=== PATIENT | female | born 1955 | race Caucasian/White ===

== ENCOUNTER 2016-12-21 10:35 | Emergency (ER) | payer OTHER ==
[2016-12-21 10:45] VITALS: BP 154/99; PULSE 64; TEMP 98; BMI 23.6
[2016-12-21] MEDS ORDERED: LORATADINE 10 MG TABLET PO ONE (10:56)
--- NOTE | 2016-12-21 10:56 | PDOC ---
History of Present Illness - General Chief Complaint: Headache Stated Complaint: HEAD, COLD, FEVER Time Seen by Provider: 12/21/16 10:47 History Source: Patient Exam Limitations: No Limitations - History of Present Illness Initial Comments: CHIEF COMPLAINT: 61 y/o afebrile female with PMH HLD, A-fib (on eliquis) c/o body aches, fever, productive cough, head pressure, nasal congestion x 4 days. HISTORY OF PRESENT ILLNESS: The patient states her highest fever was 101 yesterday. She admits she is coughing up green mucus. She has been taking tylenol for the fever. She denies earache, neck pain, dizziness, runny nose, n/ v/d, CP, SOB, abd pain, back pain. She states her doctor thinks she has a-fib and that's why she's on eliquis and she may have an ablation in the future. She is a non smoker. Vital signs on arrival are within normal limits. REVIEW OF SYSTEMS: GENERAL/CONSTITUTIONAL: +fever. No weakness. No weight change. HEAD, EYES, EARS, NOSE AND THROAT: +nasal congestion. No change in vision. No ear pain or discharge. No sore throat. CARDIOVASCULAR: No chest pain or shortness of breath. RESPIRATORY: +productive cough. No cough, wheezing, or hemoptysis. GASTROINTESTINAL: No abd pain, nausea, vomiting, diarrhea. GENITOURINARY: No dysuria, frequency, or change in urination. MUSCULOSKELETAL: No joint or muscle swelling or pain. No neck or back pain. SKIN: No rash or easy bruising. NEUROLOGIC: +head pressure. No vertigo, loss of consciousness, or loss of sensation. PHYSICAL EXAM: GENERAL: The patient is awake, alert, and fully oriented, non toxic but ill appearing. She has a congested cough. HEAD: Normal with no signs of trauma. Pain with palpation of frontal and maxillary sinuses. ENT: Pupils equal, round and reactive to light, extraocular movements intact, sclera anicteric, conjunctiva clear. Nose congested. LUNGS: Decreased lung sounds right side. Normal excursion. No respiratory distress or use of accessory muscles. CV: RRR, S1/S2, no MRG. Cap refill < 2 sec. ABDOMEN: Soft, non-distended, non-tender even to deep palpation, no hepatomegaly or splenomegaly, no masses. EXTREMITIES: Normal range of motion, no edema. NEUROLOGICAL: Normal speech, normal gait. CN II-XII grossly intact. PSYCH: Normal mood, normal affect. SKIN: Warm, dry, normal turgor, no rashes or lesions noted. Past History - Past Medical History Allergies/Adverse Reactions: Allergies Allergy/AdvReac Type Severity Reaction Status Date / Time Penicillins Allergy Unknown Verified 12/21/16 10:41 levofloxacin [From Levaquin] AdvReac Mild Verified 12/21/16 10:41 Home Medications: Ambulatory Orders Clonazepam [Klonopin -] 1 mg PO ASDIR 05/13/12 Simvastatin [Zocor -] 40 mg PO HS 05/13/12 Cyclobenzaprine HCl [Flexeril -] 10 mg PO TID PRN 12/10/14 Apixaban [Eliquis -] 5 mg PO BID 11/03/15 Trazodone HCl 200 mg PO HS 11/03/15 Venlafaxine HCl [Effexor -] 220 mg PO HS 11/03/15 Clonazepam [Klonopin] 0.5 mg PO AM 03/04/16 Oxycodone HCl [Oxycodone HCl ER] 30 mg PO BID #0 03/06/16 Doxycycline Hyclate 100 mg PO BID #14 capsule 12/21/16 Cardiac Disorders: (Paroxysmal Atrial fibrilation - now rate controlled sinus rhtytm) HTN: Yes (Controlled w/out meds) Hypercholesterolemia: Yes Psychiatric Problems: Yes (ANXIETY, DEPRESSION) - Surgical History Cardiac Surgery: Yes (Loop recorder) Neurologic Surgery: Yes (Spinal stimulator) - Immunization History Immunization Up to Date: Yes - Psycho/Social/Smoking Cessation Hx Anxiety: No Suicidal Ideation: No Smoking Status: No Smoking History: Never smoked Number of Cigarettes Smoked Daily: 0 Information on smoking cessation initiated: No Hx Alcohol Use: No Drug/Substance Use Hx: No Substance Use Type: None *Physical Exam - Vital Signs Last Vital Signs Temp Pulse Resp BP Pulse Ox 98.0 F 64 18 154/99 99 12/21/16 10:42 12/21/16 10:42 12/21/16 10:42 12/21/16 10:42 12/21/16 10:42 Medical Decision Making - Medical Decision Making A/P: 61 y/o female with sinus infection vs pneumonia. Plan is as follows: 1. CXR 2. PO claritin CXR IMPRESSION: No evidence of active pulmonary disease. Will treat the patient for sinus infection. She is allergic to PCN so will treat with doxy. Instructed her to take as prescribed Suggested she also take OTC allergy medicine and continue taking tylenol for fever Instructed her to f/u with her PCP within 1 week, drink plenty of fluids and return to the ER with any worsening or concerning symptoms. The patient verbalizes understanding of all instructions, has no further questions and is awaiting discharge. *DC/Admit/Observation/Transfer Diagnosis at time of Disposition: Sinus infection Qualifiers: Sinusitis location: unspecified location Chronicity: acute Recurrence: non- recurrent Qualified Code(s): J01.90 - Acute sinusitis, unspecified - Discharge Dispostion Disposition: HOME Condition at time of disposition: Stable - Referrals Referrals: Ashwin Ramos MD [Primary Care Provider] - Call tomorrow - Patient Instructions Printed Discharge Instructions: DI for Sinus Headache, DI for Sinusitis Additional Instructions: Discharge Instructions: -You have a sinus infection. A prescription for antibiotics was sent to your pharmacy; please take as prescribed -Take over the counter claritin, zyrtec or becka, along with your antibiotics for symptom relief -Continue taking Tylenol if needed for fever. -Drink plenty of fluids -Follow up with your doctor within 1 week -REturn to the ER with any worsening or concerning symptoms. - Post Discharge Activity Work/School Note: Back to Work
== END 2016-12-21 11:45 | disposition home or self-care (01) ==
LOC: JERFT 10:35
DX: J01.90 Acute sinusitis, unspecified (principal); I48.91 Unspecified atrial fibrillation; E78.5 Hyperlipidemia, unspecified
CPT/HCPCS: 71020-TC; 99281-25

== ENCOUNTER 2017-12-29 08:23 | Day surgery (SDC) | payer OTHER ==
[2017-12-28 08:43] VITALS: BMI 24.3
[2017-12-29 08:46] LABS: BASO % 0.8 % (0-2.0); EOS % 2.4 % (0-4.5); HEMATOCRIT 37.8 % (32.4-45.2); HEMOGLOBIN 13.1 GM/dL (10.7-15.3); LYMPH % 19.6 % (8-40); MCHC 34.6 g/dl (32.0-36.0); MEAN CELL VOLUME 89.5 fl (80-96); MEAN PLT VOLUME 8.7 fl (7.5-11.1); MONO % 7.6 % (3.8-10.2); NEUT % 69.6 % (42.8-82.8); PLATELET COUNT 213 K/MM3 (134-434); RBC 4.22 M/mm3 (3.60-5.2); RDW 13.9 % (11.6-15.6); WHITE BLOOD COUNT 6.6 K/mm3 (4.0-10.0)
[2017-12-29 09:07] LABS: INR 1.04 (0.83-1.09); PROTHROMBIN TIME (PATIENT) 11.7 SEC (9.7-13.0)
[2017-12-29 11:58] VITALS: TEMP 97.3
[2017-12-29] MEDS ORDERED: ACETAMINOPHEN INJECTION 100 ML IVPB ONE (12:18)
[2017-12-29] MEDS ORDERED: ACETAMINOPHEN 1000 MG/100 ML VIAL (NON FORMULARY) IVPB ONE (12:36)
[2017-12-29 14:10] VITALS: BP 114/65; PULSE 64
== END 2017-12-29 14:11 | disposition home or self-care (01) ==
LOC: JRADIR 08:23
PROVIDERS: ATTEND Neurological Surgery
PROC: B01BYZZ Fluoroscopy of Spinal Cord using Other Contrast (ICD-10-PCS; principal; 2017-12-29)
DX: M54.14 Radiculopathy, thoracic region (principal); M54.16 Radiculopathy, lumbar region; M54.5 Low back pain; M51.86 Other intervertebral disc disorders, lumbar region; Z98.890 Other specified postprocedural states
CPT/HCPCS: 36415; 62305; 72128-TC; 72131-TC; 72255-TC-FY; 72265-TC-FY; 76000-TC-FY; 85025; 85610; J0131

== ENCOUNTER 2018-01-30 06:03 | Emergency (ER) | payer OTHER ==
--- NOTE | 2018-01-30 06:09 | PDOC ---
Attending Attestation - Resident Resident Name: Willy Hernandez - ED Attending Attestation I have performed the following: I have examined & evaluated the patient, The case was reviewed & discussed with the resident, I agree w/resident's findings & plan - HPI HPI: 01/30/18 06:47 Pt comes with right flank pain that radiates to her right side and pelvis She has urgency and dysuria; no Hx of stones. This is unrelated to her spinal pain. - Physicial Exam PE: 01/30/18 06:48 Pt is afebrile. VSS and she has no chest pain or SOB. Right flnak pain with percussion, as well as side pain on right with percussion - Medical Decision Making 01/30/18 06:49 Pt has a +UTI; she is allergic to PCN and levaquin. We will treat with bactrim DS. Labs and spiral CT and EKG pending We ordered an EKG as she has a hx of paroxysmal Afib.
[2018-01-30 06:17] VITALS: BP 134/77; PULSE 72; TEMP 98.4; BMI 25.0
[2018-01-30] MEDS ORDERED: KETOROLAC TROMETHAMINE 30 MG/1 ML VIAL IVPUSH ONE (06:24)
[2018-01-30] MEDS ORDERED: KETOROLAC TROMETHAMINE 30 MG/1 ML VIAL ONE (06:29)
--- NOTE | 2018-01-30 06:30 | PDOC ---
History of Present Illness - General Stated Complaint: URINARY PROBLEM Time Seen by Provider: 01/30/18 06:08 History Source: Patient Exam Limitations: No Limitations - History of Present Illness Initial Comments: 01/30/18 06:27 62 yo female pmh of glaucoma, spinal fusions and a recent spinal cord stimulator placement (01/12) presents to the ED for 2 days of difficulty urinating. Patient also admits to right sided flank pain, pain/burning with urination, no blood. Denies recent F/C/N/V CP, SOB or changes in bowel habits. Patient denies any new neuro deficits, admits to residual deficits of right sided lower ext numbness and weakness. Past History - Past Medical History Allergies/Adverse Reactions: Allergies Allergy/AdvReac Type Severity Reaction Status Date / Time Penicillins Allergy Unknown Verified 01/30/18 06:50 levofloxacin [From Levaquin] AdvReac Mild Verified 01/30/18 06:50 Home Medications: Ambulatory Orders Simvastatin [Zocor -] 40 mg PO HS 05/13/12 clonazePAM [Klonopin -] 1 mg PO TID 05/13/12 Apixaban [Eliquis -] 5 mg PO BID 11/03/15 Trazodone HCl 250 mg PO HS 11/03/15 Venlafaxine HCl [Effexor -] 220 mg PO HS 11/03/15 Bimatoprost [Lumigan] 1 drop OU HS 12/28/17 Brimonidine Tartrate/Timolol [Combigan Eye Drops] 1 drop OU BID 12/28/17 Oxycodone HCl [Oxycodone HCl ER] 30 mg PO TID 12/28/17 Tizanidine HCl 6 mg PO TID 12/28/17 Venlafaxine HCl [Effexor -] 110 mg PO DAILY 12/29/17 Anemia: No Asthma: No Cancer: No Cardiac Disorders: Yes (Paroxysmal Atrial fibrilation - now rate controlled sinus rhtytm) CVA: No COPD: No CHF: No Dementia: No Diabetes: No GI Disorders: No Disorders: No HTN: Yes (Controlled w/out meds) Hypercholesterolemia: Yes Liver Disease: No Psychiatric Problems: Yes (ANXIETY, DEPRESSION) Seizures: No Thyroid Disease: No - Surgical History Cardiac Surgery: Yes (Loop recorder) Neurologic Surgery: Yes (Spinal stimulator-back sx x4) - Immunization History Immunization Up to Date: Yes - Suicide/Smoking/Psychosocial Hx Smoking Status: No Smoking History: Never smoked Number of Cigarettes Smoked Daily: 0 Hx Alcohol Use: No Drug/Substance Use Hx: No Substance Use Type: None Review of Systems - Review of Systems Constitutional: No: Chills, Fever Respiratory: No: Shortness of Breath Cardiac (ROS): No: Chest Pain, Edema ABD/GI: Yes: Other (right flank pain). No: Abdominal Distended, Nausea, Vomiting : Yes: Burning, Dysuria, Flank Pain. No: Hematuria, Incontinence Musculoskeletal: Yes: Back Pain Neurological: Yes: Numbness (residual right LE), Weakness (residual right LE) *Physical Exam - Vital Signs Last Vital Signs Temp Pulse Resp BP Pulse Ox 98.4 F 72 20 134/77 99 01/30/18 06:14 01/30/18 06:14 01/30/18 06:14 01/30/18 06:14 01/30/18 06:14 - Physical Exam General Appearance: Yes: Nourished, Appropriately Dressed HEENT: positive: EOMI Respiratory/Chest: positive: Lungs Clear, Normal Breath Sounds. negative: Respiratory Distress, Crackles, Rales, Rhonchi, Stridor, Wheezing Cardiovascular: positive: Regular Rhythm, Regular Rate, S1, S2. negative: Edema , JVD, Murmur Vascular Pulses: Dorsalis-Pedis (R): 4+, Doralis-Pedis (L): 4+ Gastrointestinal/Abdominal: positive: Normal Bowel Sounds, Flat, Soft, Other ( no tenderness with distraction). negative: Pulsatile Mass, Distended, Guarding , Rebound Musculoskeletal: positive: CVA Tenderness (right sti) Extremity: positive: Normal Inspection Integumentary: positive: Normal Color, Dry, Warm Neurologic: positive: Fully Oriented, Alert, Normal Mood/Affect, Normal Response , Motor Strength 5/5 (lower ext equal bilaterally, neurovascularly intact) ED Treatment Course - LABORATORY CBC & Chemistry Diagram: 01/30/18 06:30 Medical Decision Making - Medical Decision Making 01/30/18 06:48 62 yo female presents with 2 days of right flank pain and burning on urination. Spiral CT ordered. UA shows positive leukocytes and blood. Treating with Bactrim while in ED. Re-assess after CT *DC/Admit/Observation/Transfer Diagnosis at time of Disposition: UTI (urinary tract infection) Qualifiers: Urinary tract infection type: site unspecified Hematuria presence: with hematuria Qualified Code(s): N39.0 - Urinary tract infection, site not specified ; R31.9 - Hematuria, unspecified - Referrals Referrals: Ashwin Ramos MD [Primary Care Provider] - - Patient Instructions - Post Discharge Activity
[2018-01-30 06:41] LABS: URINE APPEARANCE CLEAR; URINE BILIRUBIN NEGATIVE (<2.0 mg/dL); URINE COLOR AMBER; URINE GLUCOSE (UA) NEGATIVE (NEGATIVE); URINE KETONE NEGATIVE (NEGATIVE); URINE NITRITE POSITIVE (NEGATIVE); URINE PROTEIN NEGATIVE (NEGATIVE); URINE UROBILINOGEN NEGATIVE mg/dL (0.2-1.0)
[2018-01-30 06:45] LABS: URINE LEUK ESTERASE 2+ (NEGATIVE)
[2018-01-30] MEDS ORDERED: SULFAMETHOXAZOLE/TRIMETHOPRIM 800MG/160MG D.S. TABLET PO ONE (06:46)
[2018-01-30 06:54] LABS: EPI CELLS RARE /HPF (FEW); URINE BACTERIA FEW /hpf (NONE SEEN); URINE MUCUS RARE
[2018-01-30] MEDS ORDERED: SULFAMETHOXAZOLE/TRIMETHOPRIM 800MG/160MG D.S. TABLET ONE (06:54)
[2018-01-30 07:04] LABS: ALBUMIN 3.8 g/dl (3.4-5.0); ANION GAP 6 MMOL/L (8-16); BILIRUBIN,TOTAL 0.5 mg/dL (0.2-1.0); BLOOD UREA NITROGEN 12 mg/dL (7-18); CALCIUM 9.3 mg/dL (8.5-10.1); CHLORIDE 104 mmol/L (98-107); CO2 32 mmol/L (21-32); GLUCOSE,RANDOM 104 mg/dL (74-106); POTASSIUM 3.9 mmol/L (3.5-5.1); SGOT/AST 28 U/L (15-37); SGPT/ALT 32 U/L (13-61); SODIUM 142 mmol/L (136-145)
[2018-01-30 07:05] LABS: ALK PHOS 79 U/L (45-117)
--- NOTE | 2018-01-30 07:32 | PDOC ---
*Physical Exam - Vital Signs Last Vital Signs Temp Pulse Resp BP Pulse Ox 98.4 F 72 20 134/77 99 01/30/18 06:14 01/30/18 06:14 01/30/18 06:14 01/30/18 06:14 01/30/18 06:14 - Physical Exam Comments: GENERAL: Awake, alert, and fully oriented, in no acute distress HEAD: No signs of trauma, normocephalic, atraumatic EYES: PERRL, EOMI, sclera anicteric, conjunctiva clear ENT: Hearing grossly normal, nares patent, oropharynx clear without exudates. Moist mucosa LUNGS: No distress, speaks full sentences, clear to auscultation bilaterally HEART:Regular rate and rhythm, normal S1 and S2, no murmurs appreciated, peripheral pulses normal and equal bilaterally ABDOMEN: Soft, mild suprapubic TTP, normoactive bowel sounds. No guarding, no rebound EXTREMITIES : Normal inspection, Normal range of motion, no edema. No clubbing or cyanosis NEUROLOGICAL: Cranial nerves II through XII grossly intact. Normal speech, normal gait, no focal sensorimotor deficits 01/30/18 07:58 ED Treatment Course - LABORATORY CBC & Chemistry Diagram: 01/30/18 06:30 - ADDITIONAL ORDERS Additional order review: Laboratory Results 01/30/18 01/30/18 06:30 06:30 Sodium 142 Potassium 3.9 Chloride 104 Carbon Dioxide 32 Anion Gap 6 L BUN 12 Creatinine 1.0 Creat Clearance w eGFR 55.82 Random Glucose 104 Calcium 9.3 Total Bilirubin 0.5 AST 28 ALT 32 Alkaline Phosphatase 79 Total Protein 7.0 Albumin 3.8 Urine Color Christine Urine Appearance Clear Urine pH 5.0 Ur Specific [place] 1.014 Urine Protein Negative Urine Glucose (UA) Negative Urine Ketones Negative Urine Blood 1+ H Urine Nitrite Positive Urine Bilirubin Negative Urine Urobilinogen Negative Ur Leukocyte Esterase 2+ H Urine WBC (Auto) 51 Urine RBC (Auto) 4 Ur Epithelial Cells Rare Urine Bacteria Few Urine Mucus Rare - Medications Given in the ED: ED Medications Discontinued Medications Generic Name Dose Route Start Last Admin Trade Name Freq PRN Reason Stop Dose Admin Ketorolac Tromethamine 30 mg 01/30/18 06:24 01/30/18 06:35 Toradol Injection - IVPUSH 01/30/18 06:25 30 mg ONCE ONE Administration Trimethoprim/Sulfamethoxazole 1 each 01/30/18 06:46 01/30/18 07:00 Bactrim Ds - PO 01/30/18 06:47 1 each ONCE ONE Administration Medical Decision Making - Medical Decision Making The patient is a 62F who presents with dysuria and flank pain ED Course UA concerning for UTI CT spiral pending for evaluation of nephrolithiasis 01/30/18 07:31 CT negative for nephrolithiasis Plan for DC with PO abx and PCP f/u Pt was asked to return to the ED immediately for any new or concerning or if they worsen. Pt was in agreement, endorsed understanding, and questions were answered. Dispo: home w/ PCP f/u 01/30/18 08:00 *DC/Admit/Observation/Transfer Diagnosis at time of Disposition: UTI (urinary tract infection) Qualifiers: Urinary tract infection type: site unspecified Hematuria presence: with hematuria Qualified Code(s): N39.0 - Urinary tract infection, site not specified - Discharge Dispostion Disposition: HOME Condition at time of disposition: Stable Decision to Admit order: No - Prescriptions Prescriptions: Sulfamethoxazole/Trimethoprim [Bactrim Ds -] 1 tab PO BID 7 Days #14 tablet - Referrals Referrals: Ashwin Ramos MD [Primary Care Provider] - - Patient Instructions Printed Discharge Instructions: DI for Urinary Tract Infection (UTI) Additional Instructions: You were seen in the Emergency Department today for a urinary tract infection. You were sent a prescription for Bactrim, an antibiotic for your infection. Please take as directed. Review the handouts provided at discharge. Follow up with your primary care physician within the next 1-3 days. Return to the Emergency Department if you experience fevers, blood in your urine, worsening symptoms, or new concerning symptoms. - Post Discharge Activity
--- NOTE | 2018-01-30 09:55 | EKG ---
Test Reason : Blood Pressure : / mmHG Vent. Rate : 063 BPM Atrial Rate : 063 BPM P-R Int : 130 ms QRS Dur : 090 ms QT Int : 392 ms P-R-T Axes : 043 050 036 degrees QTc Int : 401 ms NORMAL SINUS RHYTHM NORMAL ECG WHEN COMPARED WITH ECG OF 04-MAR-2016 18:08, T WAVE VARIATION Confirmed by LISE CARDOZA MD ([id number]) on 01/30/2018 9:55:17 AM Referred By: Confirmed By:LISE CARDOZA MD
== END 2018-01-30 08:14 | disposition home or self-care (01) ==
LOC: JER 06:03
PROC: 3E0333Z Introduction of Anti-inflammatory into Peripheral Vein, Percutaneous Approach (ICD-10-PCS; principal; 2018-01-30)
DX: N39.0 Urinary tract infection, site not specified (principal); I48.91 Unspecified atrial fibrillation; I10 Essential (primary) hypertension; F41.8 Other specified anxiety disorders; E78.00 Pure hypercholesterolemia, unspecified
CPT/HCPCS: 36415; 74176; 80053; 81003; 81015; 87086; 87186; 93005; 93010; 96374; 99282-25

== ENCOUNTER 2018-04-30 18:59 | Observation (INO) | payer OTHER ==
--- NOTE | 2018-04-30 20:08 | PDOC ---
Attending Attestation - HPI HPI: 04/30/18 20:33 The patient is a 62-year-old female with a past medical history significant for HLD, Glaucoma with cataract surgery, HTN, HLD, anxiety, Spinal fusions, and a recent spinal cord stimulator placement (01/12) presents to the emergency department with L. arm weakness. The patient presents with L. arm weakness with a concurrent headache since 1:00 pm today. The patient reports pain to the occipital region that radiates down the arm, thats tingling in quality. Denies worsening headache, fever, chills, chest pain, SOB Allergies: levofloxacin and penicillins. Surgical history: Loop recorder and spinal stimulator, left knee replacement. PCP: Dr. Gabriele Yanez. Neurologist: Dr. Betancourt. - Medical Decision Making 04/30/18 20:33 Documentation prepared by Rhonda Judge, acting as manager of medical for Suzie Harp MD. 04/30/18 22:[address] Betancourt, Spoke with the service, waiting for a call back. <Rhonda Judge - Last Filed: 04/30/18 22:25> - Resident Resident Name: Manuelito Bee - ED Attending Attestation I have performed the following: I have examined & evaluated the patient, The case was reviewed & discussed with the resident, I agree w/resident's findings & plan, Exceptions are as noted - Physicial Exam PE: 04/30/18 20:01 awake alert facies symmetric . lungs clear bilaterally heart rrr no mrg abd soft nt nd.ext wwp no edema no rash. nuero alrt oriented x 3. CN II - XII intact. strength mild left 4+/ 5 weakness left upper ext ( specifically wrist dorsiflexion), extension/ flexion elbow. sensation mild decr dorsum forearm left side. ) all else 5/5 . left leg strength weakness mild ( old ) due to low back pain which is chronic. sensation lower ext intact . speech clear. VF intact. skin warm and dry. - Medical Decision Making 04/30/18 20:05 62 yo F wit h/o HLD, glaucoma, multiple back surgeries ( nerve stimulator followed by pain management ) questionable paraxymsmal afib, here with headache , neck pain and tingling left upper extremity, left upper extremity weakness. headache left posterior occipital region. arm pain described as tingling. has had similar headaches in the past associated with arm weakness one year. ago. no speech changes. does describe some blurry vision . differential: radicular pain, cervical disc disease with occipital headache and nerve root compromise. cva, atypical migraine, ich. plan ct head labs ct neck. cxr ekg . due to pt risk factors for cva, will likely require admission for observation will consult nuerology. 05/01/18 00:37 confirmed doses of oxycodone and lyrica in [facility] lookup. ref # [id number]. takes oxycodone 30 mg, and lyrica 150 mg. d/w dr greer will admit pt. will consult nuerosurgery for evaluation as well. given decadron. <Suzie Harp - Last Filed: 05/01/18 00:38> Heart Score/ECG Review #1 General ECG Interpretation: Sinus Rhythm, Normal Intervals, No acute ischemic changes Compared to previous ECG there are: Other (sinus bradycardia 56. TWI V1 - V2) <Suzie Harp - Last Filed: 05/01/18 00:38>
[2018-04-30] MEDS ORDERED: DEXAMETHASONE SOD PHOSPHATE 10 MG/1 ML VIAL IVPUSH ONE (20:24)
[2018-04-30] MEDS ORDERED: METOCLOPRAMIDE HCL INJECTION 10 MG/2 ML VIAL IVPUSH ONE (20:24)
[2018-04-30] MEDS ORDERED: SODIUM CHLORIDE 1,000 ML IV SCH (20:30)
--- NOTE | 2018-04-30 20:32 | PDOC ---
History of Present Illness - General Chief Complaint: CVA/TIA Stated Complaint: HEADACHE, LT HAND NUMBNESS History Source: Patient Exam Limitations: No Limitations - History of Present Illness Initial Comments: 62 yo F with a hx of HLD, HTN, glaucoma with cataract surgery to left eye, lumbar spinal fusions, and a recent spinal cord stimulator placed in 12/2017 presents to the emergency department with acute left arm weakness that began at 1pm. Per the patient, she states she was at rest when she had onset of left arm pain with weakness described as tingling and loss of arm strength with associative left occipital headaches that radiates to the left arm. The headache is 8/10, throbbing, without aggravating factors, and denies this feeling like previous migraines (denies "worst headache of her life"). Denies the following: fever, chills, nausea, vomiting, chest pain, SOB, abdominal pain , dysuria, hematuria, and diarrhea. Past History - Past Medical History Allergies/Adverse Reactions: Allergies Allergy/AdvReac Type Severity Reaction Status Date / Time Penicillins Allergy Unknown Verified 04/30/18 19:17 levofloxacin [From Levaquin] AdvReac Mild Verified 04/30/18 19:17 Home Medications: Ambulatory Orders clonazePAM [Klonopin -] 1 mg PO TID 05/13/12 Apixaban [Eliquis -] 5 mg PO BID 11/03/15 Trazodone HCl 250 mg PO HS 11/03/15 Venlafaxine HCl [Effexor -] 220 mg PO HS 11/03/15 Bimatoprost [Lumigan] 1 drop OU HS 12/28/17 Brimonidine Tartrate/Timolol [Combigan Eye Drops] 1 drop OU BID 12/28/17 Oxycodone HCl [Oxycodone HCl ER] 30 mg PO TID 12/28/17 Tizanidine HCl 6 mg PO TID 12/28/17 Pregabalin [Lyrica -] 150 mg PO TID PRN 04/30/18 Anemia: No Asthma: No Cancer: No Cardiac Disorders: Yes (Paroxysmal Atrial fibrilation - now rate controlled sinus rhtytm) CVA: No COPD: No CHF: No Dementia: No Diabetes: No GI Disorders: No Disorders: No HTN: Yes (Controlled w/out meds) Hypercholesterolemia: Yes Liver Disease: No Psychiatric Problems: Yes (ANXIETY, DEPRESSION) Seizures: No Thyroid Disease: No - Surgical History Cardiac Surgery: Yes (Loop recorder) Neurologic Surgery: Yes (Spinal stimulator-back sx x4) - Immunization History Immunization Up to Date: Yes - Suicide/Smoking/Psychosocial Hx Smoking Status: No Smoking History: Never smoked Have you smoked in the past 12 months: No Number of Cigarettes Smoked Daily: 0 Information on smoking cessation initiated: No Hx Alcohol Use: No Drug/Substance Use Hx: No Substance Use Type: None *Physical Exam - Vital Signs Last Vital Signs Temp Pulse Resp BP Pulse Ox 98.1 F 63 18 153/85 100 04/30/18 19:14 04/30/18 19:14 04/30/18 19:14 04/30/18 19:14 04/30/18 19:14 Moderate Sedation - Procedure Monitoring Vital Signs: Procedure Monitoring Vital Signs Temperature 98.1 F 04/30/18 19:14 Pulse Rate 63 04/30/18 19:14 Respiratory Rate 18 04/30/18 19:14 Blood Pressure 153/85 04/30/18 19:14 O2 Sat by Pulse Oximetry (%) 100 04/30/18 19:14 ED Treatment Course - LABORATORY CBC & Chemistry Diagram: 04/30/18 20:54 04/30/18 20:54 - RADIOLOGY Radiology Studies Ordered: Category Date Time Status CERVICAL SPINE CT W/O CONTR [CT] Stat CT Scan 04/30/18 19:[address] WITHOUT CONTRAST [CT] Stat CT Scan 04/30/18 19:25 Ordered CHEST X-RAY PORTABLE* [RAD] Stat Radiology 04/30/18 20:24 Ordered Medical Decision Making - Medical Decision Making Dr. Vega was contacted because the patient states that while her temporary insurance assigned her to Dr. Yanez, she has not seen Dr. Yanez before and plans to have insurance in May that places her back with Dr. Vega. 04/30/18 22:[address] Serrano who stated her symptoms and CT findings do not warrant emergency operation. for cervical spine correction, he states it would require transfer to a tertiary center as he doesnt do these type of operations here. He recommends she can be discharged with close outpatient follow up. We will page her neurologist, Dr. Betancourt for further consultation. 05/01/18 00:[address] Betancourt who states 1x dose of steroids is fine. No need for steroids in the AM. *DC/Admit/Observation/Transfer - Referrals - Patient Instructions - Post Discharge Activity
[2018-04-30] MEDS ORDERED: DEXAMETHASONE SOD PHOSPHATE 10 MG/1 ML VIAL ONE (20:56)
[2018-04-30] MEDS ORDERED: METOCLOPRAMIDE HCL INJECTION 10 MG/2 ML VIAL ONE (20:57)
[2018-04-30 21:03] LABS: BASO % 0.8 % (0-2.0); EOS % 6.4 % (0-4.5); HEMATOCRIT 37.7 % (32.4-45.2); HEMOGLOBIN 13.1 GM/dL (10.7-15.3); LYMPH % 41.5 % (8-40); MCH 31.1 pg (25.7-33.7); MCHC 34.8 g/dl (32.0-36.0); MEAN CELL VOLUME 89.4 fl (80-96); MEAN PLT VOLUME 10.1 fl (7.5-11.1); MONO % 8.5 % (3.8-10.2); NEUT % 42.8 % (42.8-82.8); PLATELET COUNT 177 K/MM3 (134-434); RBC 4.22 M/mm3 (3.60-5.2); RDW 13.7 % (11.6-15.6); WHITE BLOOD COUNT 4.7 K/mm3 (4.0-10.0)
[2018-04-30 21:12] LABS: INR 0.96 (0.83-1.09); PROTHROMBIN TIME (PATIENT) 11.3 SEC (9.7-13.0)
[2018-04-30 21:29] LABS: ALBUMIN 3.8 g/dl (3.4-5.0); ALK PHOS 85 U/L (45-117); ANION GAP 5 MMOL/L (8-16); BILIRUBIN,TOTAL 0.5 mg/dL (0.2-1); BLOOD UREA NITROGEN 12 mg/dL (7-18); CHLORIDE 104 mmol/L (98-107); CO2 31 mmol/L (21-32); CREATININE 1.1 mg/dL (0.55-1.3); GLUCOSE,RANDOM 91 mg/dL (74-106); SGOT/AST 30 U/L (15-37); SGPT/ALT 32 U/L (13-61); SODIUM 140 mmol/L (136-145); TOT PROT 6.5 g/dl (6.4-8.2)
[2018-05-01 00:29] LABS: URINE APPEARANCE CLEAR; URINE BILIRUBIN NEGATIVE (<2.0 mg/dL); URINE COLOR STRAW; URINE GLUCOSE (UA) NEGATIVE (NEGATIVE); URINE KETONE NEGATIVE (NEGATIVE); URINE LEUK ESTERASE NEGATIVE (NEGATIVE); URINE NITRITE NEGATIVE (NEGATIVE); URINE PROTEIN NEGATIVE (NEGATIVE); URINE UROBILINOGEN NEGATIVE mg/dL (0.2-1.0)
[2018-05-01] MEDS ORDERED: PREGABALIN 75 MG CAPSULE PO ONE ×2 (00:29→11:00)
[2018-05-01] MEDS ORDERED: oxyCODONE HCL 5 MG TABLET PO ONE ×2 (00:29→00:30)
[2018-05-01] MEDS ORDERED: DOCUSATE SODIUM 100 MG CAPSULE (FP) PO ONE ×2 (00:29→00:35)
[2018-05-01] MEDS ORDERED: PREGABALIN 50 MG CAPSULE ONE (00:34)
[2018-05-01] MEDS ORDERED: oxyCODONE HCL 5 MG TABLET ONE (00:34)
[2018-05-01 00:36] LABS: EPI CELLS RARE /HPF (FEW); URINE BACTERIA RARE /hpf (NONE SEEN); URINE MUCUS RARE
[2018-05-01] MEDS ORDERED: oxyCODONE HCL 5 MG TABLET PO PRN (02:23)
[2018-05-01] MEDS ORDERED: traZODone HCL 50 MG TABLET (FP) PO ONE ×2 (02:30→09:47)
[2018-05-01 02:43] VITALS: BMI 26.5
[2018-05-01] MEDS ORDERED: VENLAFAXINE HCL 75 MG TABLET PO ONE (09:49)
--- NOTE | 2018-05-01 09:49 | EKG ---
Test Reason : Blood Pressure : / mmHG Vent. Rate : 056 BPM Atrial Rate : 056 BPM P-R Int : 196 ms QRS Dur : 094 ms QT Int : 412 ms P-R-T Axes : 053 040 028 degrees QTc Int : 397 ms SINUS BRADYCARDIA OTHERWISE NORMAL ECG WHEN COMPARED WITH ECG OF 30-JAN-2018 07:02, NO SIGNIFICANT CHANGE WAS FOUND Confirmed by LISE CARDOZA MD ([id number]) on 05/01/2018 9:49:20 AM Referred By: Confirmed By:LISE CARDOZA MD
--- NOTE | 2018-05-01 09:57 | PN ---
Progress Note, Physician Chief Complaint: Pt sitting in bed ambulating well, AAo3,no apparent motor or sensory deficit no new copmplaints today neurology consult pending No progression of neurological symptoms Ct head and cT cervical spine noted - Current Medication List Current Medications: Active Medications Sodium Chloride (Normal Saline -) 1,000 mls @ 42 mls/hr IV ASDIR SERA Last Admin: 04/30/18 21:07 Dose: 42 mls/hr Oxycodone HCl (Roxicodone -) 30 mg PO BID SERA Pregabalin (Lyrica -) 150 mg PO TID ONE Stop: 05/01/18 09:51 Tizanidine HCl (Tizanidine Hcl) 4 mg PO BID SERA Trazodone HCl (Desyrel -) 250 mg PO ONCE ONE Stop: 05/01/18 09:48 Venlafaxine HCl (Effexor -) 225 mg PO ONCE ONE Stop: 05/01/18 09:50 - Objective Vital Signs: Vital Signs Temperature 97.5 F L 05/01/18 06:00 Pulse Rate 64 05/01/18 06:00 Respiratory Rate 18 05/01/18 06:00 Blood Pressure 138/76 05/01/18 06:00 O2 Sat by Pulse Oximetry (%) 99 05/01/18 00:44 Constitutional: Yes: No Distress Eyes: Yes: Conjunctiva Clear HENT: Yes: Atraumatic Neck: Yes: Supple, Trachea Midline Cardiovascular: Yes: Regular Rate and Rhythm Respiratory: Yes: Regular, CTA Bilaterally Gastrointestinal: Yes: WNL, Normal Bowel Sounds, Soft Musculoskeletal: Yes: WNL Extremities: Yes: WNL Edema: No Peripheral Pulses WNL: Yes Neurological: Yes: WNL, Alert, Oriented, Cran Nerves II-XII Intact ...Motor Strength: WNL Psychiatric: Yes: WNL, Alert Labs: CBC, BMP 04/30/18 20:54 04/30/18 20:54 INR, PTT INR 0.96 (0.83-1.09) 04/30/18 20:54 - ....Imaging Chest X-ray: Report Reviewed Cat Scan: Report Reviewed EKG: Report Reviewed Assessment/Plan Discogenic pain neck,tingling sensation LT UE Neuropathic PAIN S/p spinal cord stimulator HTN Glaucoma LOOP recorder PLAN Continue home MEDS Neurology F/u Monitor the PATIENT
[2018-05-01] MEDS ORDERED: TIZANIDINE HCL 4 MG TABLET PO SCH (10:00)
[2018-05-01] MEDS ORDERED: oxyCODONE HCL 5 MG TABLET PO SCH (10:00)
--- NOTE | 2018-05-01 10:09 | CON.NEURO ---
Consult Consult Specialty:: [place] Referred by:: PCP - History of Present Illness History of Present Illness: this is a very pleasant 62-year-old right-handed retired lady who presented to the emergency room last night with a chief complaint of left arm weakness. Patient is under the care of neurosurgeon in [facility] back in December 28, 2017 she had a spinal cord stimulator trial. Patient was on Lyrica 150 twice daily I spoke to the emergency room physician CAT scan of the head was done which revealed no evidence of acute INSURANCE TERRITORY MANAGER pathology CAT scan of the cervical spine was done which showed multiple level disc herniation with spinal stenosis and degenerative disc disease. Patient was admitted to the floor for observation with the left arm weakness received 1 dose of Decadron patient about 80% better patient with mild numbness and tingling in the left arm patient did not see the neurologist for quite a while patient stop taking B complex patient denies any difficulty swallowing patient denies any urinary incontinence. Patient does not see chiropractic - History Source History Provided By: Patient Limitations to Obtaining History: No Limitations - Past Medical History Cardio/Vascular: Yes: HTN, Hyperlipdemia. No: AFIB, Aneurysm, Aortic Insufficiency, Aortic Stenosis, CAD, CHF, Deep Vein Thrombosis, VA, Mitral Insufficiency, Mitral Stenosis, Murmur, Pulmonary Hypertension, Other - Alcohol/Substance Use Hx Alcohol Use: No - Smoking History Smoking history: Never smoked Have you smoked in the past 12 months: No Aproximately how many cigarettes per day: 0 Home Medications - Allergies Allergies/Adverse Reactions: Allergies Allergy/AdvReac Type Severity Reaction Status Date / Time Penicillins Allergy Unknown Verified 04/30/18 19:17 levofloxacin [From Levaquin] AdvReac Mild Verified 04/30/18 19:17 - Home Medications Home Medications: Ambulatory Orders clonazePAM [Klonopin -] 1 mg PO TID 05/13/12 Trazodone HCl 250 mg PO HS 11/03/15 Venlafaxine HCl [Effexor -] 220 mg PO HS 11/03/15 Bimatoprost [Lumigan] 1 drop OU HS 12/28/17 Brimonidine Tartrate/Timolol [Combigan 0.2%-0.5% Eye Drops] 1 drop OU BID Oxycodone HCl [Oxycodone HCl ER] 30 mg PO TID 12/28/17 Tizanidine HCl 6 mg PO TID 12/28/17 Pregabalin [Lyrica -] 150 mg PO TID PRN 04/30/18 Duloxetine HCl [Cymbalta] 30 mg PO DAILY #10 capsule. 05/01/18 Family Disease History - Family Disease History Family Disease History: Heart Disease: Father, Mother Review of Systems - Review of Systems Musculoskeletal: reports: Back Pain, Extremity Pain, Joint Swelling, Muscle Pain Neurological: reports: Incoordination, Numbness, Parasthesia Physical Exam-Neuro Vital Signs: Vital Signs Temperature 97.5 F L 05/01/18 06:00 Pulse Rate 64 05/01/18 06:00 Respiratory Rate 18 05/01/18 06:00 Blood Pressure 138/76 05/01/18 06:00 O2 Sat by Pulse Oximetry (%) 99 05/01/18 00:44 Constitutional: Yes: Well Nourished Neck: Yes: WNL Labs: CBC, BMP 04/30/18 20:54 04/30/18 20:54 INR, PTT INR 0.96 (0.83-1.09) 04/30/18 20:54 - Neuro Exam Level Of Consciousness: Yes: Oriented to Person, Oriented to Place, Oriented to Time Eyes: Yes: PERRLA Speech: WNL Dominant Hand: Right Cranial Nerves II-XII Intact: Yes Gag: Present DTR's: 1+ Right Tricep, 1+ Left Brachioradialis, 2+ Left Bicep, 2+ Right Bicep Response to light touch: Normal Response to pain prick: Normal Response to temperature: Normal Response to vibration: Normal Motor Strength: 3/5: Left Arm, Right Arm, Left Leg, Right Leg Imaging - Results Cat Scan: Image Reviewed Problem List - Problems (1) Cervical radiculopathy Assessment/Plan: chronic neck pain syndrome Status post spinal cord stimulator no evidence of myelopathy C6-C7 radiculopathy left more than right 1. Avoid child caregiver. 2. Obtain the most recent images from the neurosurgeon in [place]. 3. Bedrest. 4. B complex vitamin. 5. Trial of Cymbalta 30 mg once daily with careful monitoring of side effects to the antipsychotic the patient's on. 5. Increase Lyrica to 200 mg twice daily. 6. Patient will need nerve conduction testing electromyography of the upper extremities as outpatient. Code(s): M54.12 - RADICULOPATHY, CERVICAL REGION
[2018-05-01] MEDS ORDERED: TRAZODONE HCL PO ONE (10:15)
[2018-05-01] MEDS ORDERED: VENLAFAXINE HCL 75 MG E.R. CAPSULES (FP) PO SCH (10:45)
[2018-05-01] MEDS ORDERED: PT OWN MED DRAWER 7, Y5N ONE ×2 (11:28→11:49)
[2018-05-01] MEDS ORDERED: PREGABALIN 100 MG CAPSULE PO SCH (14:00)
[2018-05-01] MEDS ORDERED: PREGABALIN 75 MG CAPSULE PO SCH (14:00)
[2018-05-01 14:12] VITALS: BP 109/62; PULSE 73; TEMP 97.9
[2018-05-01] MEDS ORDERED: TRAZODONE HCL PO SCH (22:00)
[2018-05-02] MEDS ORDERED: DULoxetine HCL 30 MG CAPSULE.DR (FP) PO SCH (10:00)
--- NOTE | 2018-05-02 12:14 | DS ---
DATE OF ADMISSION: 04/30/2018 DATE OF DISCHARGE: 05/01/2018 Patient is a 63-year-old female with past medical history of hyperlipidemia, glaucoma, hypertension, hyperlipidemia, anxiety, spinal fusion, recent spinal cord stimulator placement, loop recorder placement, admitted for cervical disk pain with tingling sensation on the left upper extremity and mild headache. During visit to the emergency room, vitals were stable. Patient had labs done, normal. CT head negative. CT cervical spine showed multi-level spinal stenosis with disk herniation. EKG was normal. Chest x-ray was normal. Case was discussed with the neurosurgeon in the emergency room by the emergency physician, recommended to follow as an outpatient. Case discussed with Neurology, also. Given bundles of steroid injection. Patient taken up to floor for observation. There was no progression of the neurological symptoms, and the clinical examination was normal. Neurological examination was normal and vital signs stable. During the 24 hours, patient was stable on the floor and no progression of the neurological symptoms. Patient was treated with muscle relaxant and pain medication as she was taking at home. Neurologist seen the patient, cleared for discharge. Patient discharged home in a stable condition on home medications and recommended to see Neurology as an outpatient. MARY MENDOZA M.D. [id number]
--- NOTE | 2018-05-02 12:17 | HP ---
DATE OF ADMISSION: 04/30/2018 DATE OF DICTATION: 05/01/2018 HISTORY OF PRESENT ILLNESS: This is a 62-year-old female with a past medical history of hyperlipidemia, hypertension, glaucoma, anxiety, spinal fusion, recent spinal cord stimulator placement, loop recorder replacement, came to the emergency room with complaints of left arm weakness. Patient presented with left arm weakness with a concurrent headache since 1 p.m. yesterday. The patient reports the pain that radiates to the arm and is tingling in quality. Denies any worsening headache, fever, chills, chest pain, shortness of breath. No blurry vision. ALLERGIES: The patient is allergic to LEVOFLOXACIN and PENICILLIN. SURGICAL HISTORY: History of loop recorder and spinal stimulator, left knee replacement. MEDICATIONS: The patient is on Klonopin, trazodone 250 mg p.o. at bedtime, Effexor mg at bedtime, Lumigan/Timolol eyedrops, oxycodone, tizanidine 6 mg t.i.d. and Lyrica 150 mg p.o. t.i.d. REVIEW OF SYSTEMS: No history of anemia. No history of asthma. Cardiovascular: History of paroxysmal atrial fibrillation, history of loop recorder placement. COPD no. CHF no. Hypertension, controlled with diet. History of hyperlipidemia. Patient has history of anxiety and depression. No history of smoking. No history of drug administration. No alcohol. Regarding the vitals, in the emergency room temperature 98.1, pulse 63, respirations 18, blood pressure 153/85 and pulse oximetry 100%. PHYSICAL EXAMINATION: GENERAL: Alert and oriented x3. No apparent motor, sensory deficit. Reflex normal. Pupils equally react to light and accommodation. Cranial nerves normal. Patient ambulating normal. Awake and alert. Face symmetric. CHEST: Clear. CARDIOVASCULAR: First and second sound normal. ABDOMEN: Soft. No tenderness. No distention. Bowel sounds present. EXTREMITIES: No edema. NEUROLOGICAL: Her speech is normal. Romberg sign negative. No apparent motor or sensory deficit. LABORATORY: CBC normal. CTA normal. Chemistry normal. Cardiac enzymes negative. Urine blood 1+. Patient had head CT done. No CT evidence of intracranial hemorrhage or midline shift or mass. CT of the cervical spine shows C4, C5 loss of disk space and broad-based disk protrusion with the left posterolateral left subarticular component, mild central spinal stenosis C5, C6, osteoarthritis of the joints with osteophytes encroaching the neural foramina, facet arthropathy. Central spinal canal stenosis. Bilateral neural foramina narrowing, left greater than the right, broad-based disk protrusion, C6-C7 loss of disk space, degenerative changes, facet arthropathy, osteoarthritis of multiple joints. Chest x-ray done, no acute pathology. EKG done, sinus bradycardia, no significant change. Case was discussed with the neurosurgeon. As per the ER note, after discussion with the neurosurgeon, there is no need for any emergency surgery for cervical spinal correction and can be discharged to close outpatient followup. ER discussed the case with neurology. Patient was given 1 dose of dexamethasone 10 mg IV push. As per Neurology, recommend to keep the patient for observation. Patient kept on observation, seen by the Neurology in the morning, recommended to continue the home medications and Cymbalta added. Patient was stable during the hospitalization, no progress of the neurological symptoms. Patient discharged to home on home medication with the Cymbalta 30 mg daily. ADMITTING DIAGNOSIS: Cervical diskogenic pain with tingling of the left upper extremity, hypertension, hyperlipidemia, status post spinal fusion surgery, and spinal cord stimulator placement. Advice given to continue the home medication, follow up with Neurology and Pain Management. Patient discharged to home in a stable condition. MARY MENDOZA M.D. [id number]
== END 2018-05-01 16:25 | disposition home or self-care (01) ==
LOC: JER 18:59 → INTOOBSV 22:52 → JERBED 22:52 → J8W 05-01 01:31
PROVIDERS: ADMIT Family Medicine; ATTEND Family Medicine
PROC: 3E033NZ Introduction of Analgesics, Hypnotics, Sedatives into Peripheral Vein, Percutaneous Approach (ICD-10-PCS; principal; 2018-04-30)
PROC: 3E033GC Introduction of Other Therapeutic Substance into Peripheral Vein, Percutaneous Approach (ICD-10-PCS; 2018-04-30)
PROC: 3E0337Z Introduction of Electrolytic and Water Balance Substance into Peripheral Vein, Percutaneous Approach (ICD-10-PCS; 2018-04-30)
DX: M54.12 Radiculopathy, cervical region (principal); M54.2 Cervicalgia; G89.29 Other chronic pain; M79.2 Neuralgia and neuritis, unspecified; Z97.8 Presence of other specified devices; R20.0 Anesthesia of skin; R20.2 Paresthesia of skin; I10 Essential (primary) hypertension; E78.5 Hyperlipidemia, unspecified; F41.9 Anxiety disorder, unspecified; H40.9 Unspecified glaucoma; I48.0 Paroxysmal atrial fibrillation; Z79.01 Long term (current) use of anticoagulants; Z98.1 Arthrodesis status; Z88.0 Allergy status to penicillin; Z88.1 Allergy status to other antibiotic agents
CPT/HCPCS: 36415; 70450-TC; 71045-TC-FY; 72125-TC; 80053; 81003; 81015; 82550; 84484; 85025; 85610; 85651; 86850; 86900; 86901; 93005; 93010; 96361; 96365; 96374; 96375; 96376; 99285-25; G0378; J1100; J7030

== ENCOUNTER 2018-06-20 11:05 | Emergency (ER) | payer OTHER ==
[2018-06-20 11:16] VITALS: BP 119/72; PULSE 65; TEMP 97.3; BMI 24.6
--- NOTE | 2018-06-20 12:54 | PDOC ---
History of Present Illness - General Chief Complaint: Pain, Acute Stated Complaint: L FOOT PAIN Time Seen by Provider: 06/20/18 12:29 - History of Present Illness Initial Comments: 06/20/18 12:51 63 -year-old female with multiple comorbidities presents for evaluation of atraumatic onset of left great toe pain 2 days no systemic symptoms. Past History - Past Medical History Allergies/Adverse Reactions: Allergies Allergy/AdvReac Type Severity Reaction Status Date / Time Penicillins Allergy Unknown Verified 06/20/18 11:12 levofloxacin [From Levaquin] AdvReac Mild Verified 06/20/18 11:12 Home Medications: Ambulatory Orders clonazePAM [Klonopin -] 1 mg PO TID 05/13/12 Trazodone HCl 250 mg PO HS 11/03/15 Venlafaxine HCl [Effexor -] 220 mg PO HS 11/03/15 Bimatoprost [Lumigan] 1 drop OU HS 12/28/17 Brimonidine Tartrate/Timolol [Combigan 0.2%-0.5% Eye Drops] 1 drop OU BID Oxycodone HCl [Oxycodone HCl ER] 30 mg PO TID 12/28/17 Tizanidine HCl 6 mg PO TID 12/28/17 Pregabalin [Lyrica -] 150 mg PO TID PRN 04/30/18 Duloxetine HCl [Cymbalta] 30 mg PO DAILY #10 capsule. 05/01/18 Anemia: No Asthma: No Cancer: No Cardiac Disorders: Yes (Paroxysmal Atrial fibrilation - now rate controlled sinus rhtytm) CVA: No COPD: No CHF: No Dementia: No Diabetes: No GI Disorders: No Disorders: No HTN: Yes (Controlled w/out meds) Hypercholesterolemia: Yes Liver Disease: No Psychiatric Problems: Yes (ANXIETY, DEPRESSION) Seizures: No Thyroid Disease: No - Surgical History Cardiac Surgery: Yes (Loop recorder) Neurologic Surgery: Yes (Spinal stimulator-back sx x4) - Immunization History Immunization Up to Date: Yes - Suicide/Smoking/Psychosocial Hx Smoking Status: No Smoking History: Never smoked Have you smoked in the past 12 months: No Number of Cigarettes Smoked Daily: 0 Hx Alcohol Use: No Drug/Substance Use Hx: No Substance Use Type: None Review of Systems - Review of Systems Musculoskeletal: Yes: Joint Pain *Physical Exam - Vital Signs Last Vital Signs Temp Pulse Resp BP Pulse Ox 97.3 F L 65 16 119/72 99 06/20/18 11:13 06/20/18 11:13 06/20/18 11:13 06/20/18 11:13 06/20/18 11:13 - Physical Exam Comments: 06/20/18 12:51 Left great toe skin color and temperature are normal, there is no swelling. No intra-articular effusion about the left first MTP joint. Range of motion is slightly limited with mild discomfort. There is diffuse tenderness which is nonspecific around the MTPJ. No gross sensorimotor deficits. She is neurovascularly intact. Moderate Sedation - Procedure Monitoring Vital Signs: Procedure Monitoring Vital Signs Temperature 97.3 F L 06/20/18 11:13 Pulse Rate 65 06/20/18 11:13 Respiratory Rate 16 06/20/18 11:13 Blood Pressure 119/72 06/20/18 11:13 O2 Sat by Pulse Oximetry (%) 99 06/20/18 11:13 ED Treatment Course - RADIOLOGY Radiology Studies Ordered: Category Date Time Status TOE(S) LEFT [RAD] Stat Radiology 06/20/18 12:32 Taken Medical Decision Making - Medical Decision Making 06/20/18 12:52 Osteoarthritic changes on radiograph today no acute fracture or destructive process *DC/Admit/Observation/Transfer Diagnosis at time of Disposition: Toe pain, left - Discharge Dispostion Disposition: HOME Condition at time of disposition: Stable Decision to Admit order: No - Referrals Referrals: Janes Banerjee MD [Staff Physician] - - Patient Instructions Additional Instructions: Return to the emergency room should symptoms worsen or go unresolved. Follow-up with orthopedic surgery in 1-2 days for further evaluation and treatment options. Continue to take your regularly scheduled pain medication. X-ray today was normal but it did show arthritis which may be causing her pain. - Post Discharge Activity
== END 2018-06-20 12:57 | disposition home or self-care (01) ==
LOC: JERFT 11:05
DX: M19.072 Primary osteoarthritis, left ankle and foot (principal); I10 Essential (primary) hypertension; E78.00 Pure hypercholesterolemia, unspecified; F41.8 Other specified anxiety disorders; F32.9 Major depressive disorder, single episode, unspecified; Z86.79 Personal history of other diseases of the circulatory system; Z95.818 Presence of other cardiac implants and grafts; Z96.89 Presence of other specified functional implants
CPT/HCPCS: 73660-TC-LT-FY; 99281-25

== ENCOUNTER 2018-08-15 10:27 | Day surgery (SDC) | payer OTHER ==
[2018-08-15 10:50] VITALS: BMI 23.8
[2018-08-15 11:45] VITALS: TEMP 97
[2018-08-15 12:40] VITALS: BP 113/72; PULSE 54
--- NOTE | 2018-08-17 16:40 | PATH ---
Surgical Pathology Report Patient Name: DIEGO SANTACRUZ [facility]. Rec. #: [id number] /Age/Gender: 1955 (Age: 63) / F Account: [id number] Location: U-ENDOSCOPY Taken: 08/15/2018 Received: 08/16/2018 Reported: 08/17/2018 Physicians: Christian Moreno M.D. Specimen(s) Received ANTRUM Clinical History Reflux, colon cancer screening Postoperative diagnosis: Gastritis Final Diagnosis ANTRUM, BIOPSY: GASTRIC MUCOSA WITH CHRONIC GASTRITIS. REACTIVE GASTROPATHY PRESENT. IMMUNOSTAIN FOR H. PYLORI IS NEGATIVE. NEGATIVE FOR INTESTINAL METAPLASIA. Electronically Signed Israel Smith M.D. Gross Description Received in formalin, labeled "antrum" are 2 m[place], irregular portions of soft tissue measuring 0.2 and 0.3 cm. in greatest dimension. The specimens are submitted in toto in one cassette. 08/16/201808/16/2018
== END 2018-08-15 15:55 | disposition home or self-care (01) ==
LOC: JASU-ENDO 10:27
PROVIDERS: ATTEND Internal Medicine Gastroenterology
PROC: 0DJD8ZZ Inspection of Lower Intestinal Tract, Via Natural or Artificial Opening Endoscopic (ICD-10-PCS; 2018-08-15)
PROC: 0DB68ZX Excision of Stomach, Via Natural or Artificial Opening Endoscopic, Diagnostic (ICD-10-PCS; principal; 2018-08-15 12:00)
DX: Z12.11 Encounter for screening for malignant neoplasm of colon (principal); K29.50 Unspecified chronic gastritis without bleeding
CPT/HCPCS: 43239; G0121; 88305-TC; 88342-TC

== ENCOUNTER 2020-01-23 10:05 | Emergency (ER) | payer OTHER ==
[2020-01-23 10:14] VITALS: BP 124/70; PULSE 80; TEMP 97.5; BMI 19.3
--- NOTE | 2020-01-23 10:43 | PDOC ---
History of Present Illness - General Chief Complaint: Shortness of Breath Stated Complaint: SOB/COUGHING Time Seen by Provider: 01/23/20 10:32 History Source: Patient Exam Limitations: No Limitations Past History - Travel History Traveled outside of the country in the last 30 days: No Close contact w/someone who was outside of country & ill: No - Medical History Allergies/Adverse Reactions: Allergies Allergy/AdvReac Type Severity Reaction Status Date / Time Penicillins Allergy Unknown Verified 01/23/20 10:14 levofloxacin [From Levaquin] AdvReac Mild Verified 01/23/20 10:14 Home Medications: Ambulatory Orders clonazePAM [Klonopin -] 2.5 mg PO TID 05/13/12 Trazodone HCl 250 mg PO HS 11/03/15 Venlafaxine HCl [Effexor -] 220 mg PO HS 11/03/15 Bimatoprost [Lumigan] 1 drop OU HS 12/28/17 Brimonidine Tartrate/Timolol [Combigan 0.2%-0.5% Eye Drops] 1 drop OU BID 12/28/17 Oxycodone HCl [Oxycodone HCl ER] 30 mg PO TID 12/28/17 Pregabalin [Lyrica -] 200 mg PO TID PRN 04/30/18 Phenazopyridine HCl [Pyridium] 100 mg PO BID PRN #6 tablet 10/22/19 Sulfamethoxazole/Trimethoprim [Bactrim Ds -] 1 tab PO BID #14 tablet 10/22/19 Azithromycin [Zithromax 250mg Tablets -] 250 mg PO UTDICT #6 tab 01/23/20 Guaifenesin AC [Robitussin AC -] 10 ml PO TID PRN #100 ml MDD 3 01/23/20 Methylprednisolone [Medrol Dose Edmond] 4 mg PO ASDIR #21 tablet 01/23/20 Anemia: No Asthma: No Cancer: No Cardiac Disorders: Yes (Paroxysmal Atrial fibrilation - now rate controlled sinus rhtytm) CVA: No COPD: No CHF: No Dementia: No Diabetes: No GI Disorders: No Disorders: No HTN: Yes (Controlled w/out meds) Hypercholesterolemia: Yes Liver Disease: No Psychiatric Problems: Yes (ANXIETY, DEPRESSION) Seizures: No Thyroid Disease: No - Surgical History Cardiac Surgery: Yes (Loop recorder) Neurologic Surgery: Yes (Spinal stimulator-back sx x6) - Reproductive History Is Patient Now?: No - Immunization History Immunization Up to Date: Yes - Psycho-Social/Smoking History Smoking Status: No Smoking History: Former smoker Have you smoked in the past 12 months: No Number of Cigarettes Smoked Daily: 0 If you are a former smoker, when did you quit?: 1999 Information on smoking cessation initiated: No - Substance Abuse Hx (Audit-C & DAST Scrn) How often the patient has a drink containing alcohol: Never Score: In Men: 4 or > Positive; In Women: 3 or > Positive: 0 Screen Result (Pos requires Nsg. Audit-10AR): Negative In the last yr the pt used illegal drug/Rx for NonMed reason: No Score: Yes response is considered Positive: 0 Screen Result (Positive result requires Nsg. DAST-10): Negative Review of Systems - Review of Systems Able to Perform ROS?: Yes Comments:: 01/23/20 16:24 CONSTITUTIONAL: Absent: fever, chills, diaphoresis, generalized weakness, malaise, loss of appetite HEENT: Absent: rhinorrhea, nasal congestion, throat pain, throat swelling, difficulty swallowing, mouth swelling, ear pain, eye pain, visual Changes CARDIOVASCULAR: Absent: chest pain, loss of consciousness, palpitations, irregular heart rate, peripheral edema RESPIRATORY: Present: cough, shortness of breath Absent: dyspnea with exertion, orthopnea, wheezing, stridor, hemoptysis GASTROINTESTINAL: Absent: abdominal pain, abdominal distension, nausea, vomiting, diarrhea, constipation, melena, hematochezia GENITOURINARY: Absent: dysuria, frequency, urgency, hesitancy, hematuria, flank pain, genital pain MUSCULOSKELETAL: Absent: myalgia, arthralgia, joint swelling SKIN: Absent: rash, itching, pallor HEMATOLOGIC/IMMUNOLOGIC: Absent: easy bleeding, easy bruising, lymphadenopathy, frequent infections ENDOCRINE: Absent: unexplained weight gain, unexplained weight loss, heat intolerance, cold intolerance NEUROLOGIC: Absent: headache, focal weakness or paresthesias, dizziness, unsteady gait, seizure, mental status changes, bladder or bowel incontinence PSYCHIATRIC: Absent: anxiety, depression, suicidal or homicidal ideation, hallucinations. Is the patient limited Romanian proficient: No *Physical Exam - Vital Signs Last Vital Signs Temp Pulse Resp BP Pulse Ox 97.5 F L 80 16 124/70 98 01/23/20 10:08 01/23/20 10:08 01/23/20 10:08 01/23/20 10:08 01/23/20 10:08 - Physical Exam 01/23/20 16:24 GENERAL: Well developed, well nourished. Awake and alert. No acute distress. HEENT: Normocephalic, atraumatic. PERRLA, EOMI. No conjunctival pallor. Sclera are non- icteric. Moist mucous membranes. Oropharynx is clear. NECK: Supple. Full ROM. No JVD. Carotid pulses 2+ and symmetric, without bruits. No thyromegaly. No lymphadenopathy. CARDIOVASCULAR: Regular rate and rhythm. No murmurs, rubs, or gallops. Distal pulses are 2+ and symmetric. PULMONARY: No evidence of respiratory distress. Lungs clear to auscultation with diminished sounds to the L base. No wheezing, rales or rhonchi. ABDOMINAL: Soft. Non-tender. Non-distended. No rebound or guarding. No organomegaly. Normoactive bowel sounds. MUSCULOSKELETAL Normal range of motion at all joints. No bony deformities or tenderness. No CVA tenderness. EXTREMITIES: No cyanosis. No clubbing. No edema. No calf tenderness. SKIN: Warm and dry. Normal capillary refill. No rashes. No jaundice. NEUROLOGICAL: Alert, awake, appropriate. Cranial nerves 2-12 intact. No deficits to light touch and temperature in face, upper extremities and lower extremities. No motor deficits in the in face, upper extremities and lower extremities. Normoreflexic in the upper and lower extremities. Normal speech. Toes are down-going bilaterally. Gait is normal without ataxia. PSYCHIATRIC: Cooperative. Good eye contact. Appropriate mood and affect. ED Treatment Course - LABORATORY CBC & Chemistry Diagram: 01/23/20 12:05 01/23/20 12:05 Medical Decision Making - Medical Decision Making 01/23/20 16:25 The patient is a 64-year-old female with past medical history of hypertension, presents to the ER today for a cough for 1 week. She states she saw her primary care doctor for the cough at the beginning of the week and was given 3 days of prednisone. She states that it did not help her symptoms and that she has had worsening cough. She states that her whole body hurts when she coughs. She states that she has had intermittent chills. She notes that she has had 2- COVID swabs the last 1 being at the end of November. Denies chest pain, shortness of breath and nausea vomiting diarrhea. A/P: SOB On exam patient does have decreased lung sounds at the left base. No wheezes rhonchi or rales noted. Heart S1-S2 present normal rate and rhythm. No murmurs rubs or gallops. Basic labs, chest x-ray ordered Chest x-ray shows possible early left lower lobe pneumonia per radiology. We will treat with antibiotics, prednisone at this time. Discharge home and have her follow-up with her primary care doctor. Patient re-swab for COVID I discussed the physical exam findings, ancillary test results and final diagnoses with the patient. I answered all of the patient's questions. The patient was satisfied with the care received and felt comfortable with the discharge plan and treatment plan. The Patient agrees to follow up with the primary care physician/specialist within 24-72 hours. Return precautions were given. Discharge - Discharge Information Problems reviewed: Yes Clinical Impression/Diagnosis: Pneumonia Qualifiers: Pneumonia type: due to unspecified organism Laterality: left Lung location: lower lobe of lung Qualified Code(s): J18.9 - Pneumonia, unspecified organism Condition: Stable Disposition: HOME - Admission No - Additional Discharge Information Prescriptions: Methylprednisolone [Medrol Dose Edmond] 4 mg PO ASDIR #21 tablet Guaifenesin AC [Robitussin AC -] 10 ml PO TID PRN #100 ml MDD 3 PRN Reason: Cough Azithromycin [Zithromax 250mg Tablets -] 250 mg PO UTDICT #6 tab - Follow up/Referral Referrals: Ashwin Ramos MD [Primary Care Provider] - - Patient Discharge Instructions Patient Printed Discharge Instructions: DI for Pneumonia -- Adult Additional Instructions: You have pneumonia. This is a lung infection. Please take the antibiotics azithromycin as directed. Please restart the prednisone. A new prescription has been sent for you. Take it as directed. You may use the Robitussin with codeine every 8 hours as needed for cough. Please follow-up with your primary care doctor this week for further management of your symptoms. Return to the ER for difficulty breathing, shortness of breath, chest pain or if you have any change in your symptoms - Post Discharge Activity
[2020-01-23 12:25] LABS: INR 1.04 (0.83-1.09); PROTHROMBIN TIME (PATIENT) 12.3 SEC (9.7-13.0)
[2020-01-23 12:30] LABS: EOS % 4.5 % (0-4.5); HEMOGLOBIN 12.7 GM/dL (10.7-15.3); LYMPH % 13.5 % (8-40); MCH 29.3 pg (25.7-33.7); MCHC 33.5 g/dl (32.0-36.0); MEAN CELL VOLUME 87.5 fl (80-96); MEAN PLT VOLUME 9.2 fl (7.5-11.1); MONO % 7.2 % (3.8-10.2); NEUT % 73.8 % (42.8-82.8); PLATELET COUNT 306 K/MM3 (134-434); RBC 4.34 M/mm3 (3.60-5.2); RDW 14.2 % (11.6-15.6); WHITE BLOOD COUNT 10.8 K/mm3 (4.0-10.0)
[2020-01-23 12:50] LABS: EPI CELLS 22 /uL (0-25.1); HYALINE CASTS 7 /uL (0-3.1); PH,URINE 5.5 (5.0-8.0); URINE APPEARANCE CLEAR; URINE BACTERIA 4033 /uL (0-1359); URINE BILIRUBIN NEGATIVE (NEGATIVE); URINE COLOR DK YELLOW; URINE GLUCOSE (UA) NEGATIVE (NEGATIVE); URINE KETONE NEGATIVE (NEGATIVE); URINE LEUK ESTERASE 1+ (NEGATIVE); URINE NITRITE NEGATIVE (NEGATIVE); URINE PROTEIN TRACE (NEGATIVE); URINE RBC 88 /uL (0-23.9); URINE WBC 149 /uL (0-25.8)
[2020-01-23 13:16] LABS: ALBUMIN 3.3 g/dl (3.4-5.0); ALK PHOS 88 U/L (45-117); ANION GAP 4 MMOL/L (8-16); BILIRUBIN,TOTAL 0.6 mg/dL (0.2-1); BLOOD UREA NITROGEN 11.6 mg/dL (7-18); CALCIUM 9.2 mg/dL (8.5-10.1); CHLORIDE 101 mmol/L (98-107); CO2 33 mmol/L (21-32); CREATININE 0.9 mg/dL (0.55-1.3); GLUCOSE,RANDOM 91 mg/dL (74-106); N-TERMINAL BNP 64.2 pg/ml (5-125); POTASSIUM 4.2 mmol/L (3.5-5.1); SGOT/AST 15 U/L (15-37); SGPT/ALT 20 U/L (13-61); SODIUM 138 mmol/L (136-145); TOT PROT 7.4 g/dl (6.4-8.2)
--- NOTE | 2020-01-23 15:33 | EKG ---
Test Reason : Blood Pressure : / mmHG Vent. Rate : 080 BPM Atrial Rate : 080 BPM P-R Int : 118 ms QRS Dur : 088 ms QT Int : 356 ms P-R-T Axes : 045 045 017 degrees QTc Int : 410 ms POOR DATA QUALITY, INTERPRETATION MAY BE ADVERSELY AFFECTED NORMAL SINUS RHYTHM NORMAL ECG Confirmed by MD MIRA, BRODERICK ([id number]) on 01/23/2020 3:32:45 PM Referred By: Confirmed By:BRODERICK MEYERS MD
== END 2020-01-23 14:33 | disposition home or self-care (01) ==
LOC: JER 10:05
DX: J18.9 Pneumonia, unspecified organism (principal)
CPT/HCPCS: 36415; 71046-TC-FY; 80053; 81003; 82550; 83880; 84484; 85025; 85610; 93005; 93010; 99285-25; U0003

== ENCOUNTER 2022-12-17 21:53 | Emergency (ER) | payer OTHER ==
[2022-12-17 22:03] VITALS: RESP 18; BMI 20.9
[2022-12-17] MEDS ORDERED: KCL 10 MEQ IVPB 10 MEQ/100 ML INFUS.BAG IVPB ONE (23:27)
[2022-12-17] MEDS ORDERED: TETRACAINE 0.5% OPHTH SOLN 2 ML BOTTLE ONE (23:33)
[2022-12-17] MEDS ORDERED: TETRACAINE 0.5% HCL 0.6ML DROPPER.BOTTLE OS ONE (23:33)
[2022-12-18] MEDS ORDERED: METOCLOPRAMIDE HCL INJECTION 10 MG/2 ML VIAL IVPUSH ONE (00:07)
[2022-12-18] MEDS ORDERED: METOCLOPRAMIDE HCL INJECTION 10 MG/2 ML VIAL IVPB ONE (00:07)
[2022-12-18] MEDS ORDERED: ACETAMINOPHEN 1000 MG/100 ML BAG IVPB ONE (00:08)
[2022-12-18] MEDS ORDERED: ACETAMINOPHEN INJECTION 100 ML IVPB ONE (00:37)
[2022-12-18] MEDS ORDERED: METOCLOPRAMIDE HCL INJECTION 10 MG/2 ML VIAL ONE (00:41)
[2022-12-18 01:14] VITALS: BP 137/83; PULSE 71; TEMP 97.7
[2022-12-18 01:30] LABS: BASO % 0.6 % (0-2.0); EOS % 4.5 % (0-4.5); HEMATOCRIT 38.1 % (32.4-45.2); HEMOGLOBIN 12.9 GM/dL (10.7-15.3); LYMPH % 23.9 % (8-40); MCHC 33.8 g/dl (32.0-36.0); MEAN CELL VOLUME 88.8 fl (80-96); MEAN PLT VOLUME 8.3 fl (7.5-11.1); MONO % 10.5 % (3.8-10.2); NEUT % 60.5 % (42.8-82.8); PLATELET COUNT 256 10^3/uL (134-434); RBC 4.29 M/mm3 (3.60-5.2); RDW 13.8 % (11.6-15.6); WHITE BLOOD COUNT 6.2 K/mm3 (4.0-10.0)
[2022-12-18] MEDS ORDERED: DEXAMETHASONE SOD PHOSPHATE 10 MG/1 ML VIAL IVPUSH ONE (01:34)
[2022-12-18 01:50] LABS: CALCIUM 9.5 mg/dL (8.5-10.1)
[2022-12-18 01:51] LABS: ALBUMIN 3.6 g/dl (3.4-5.0)
[2022-12-18 01:55] LABS: BILIRUBIN,TOTAL 0.5 mg/dL (0.2-1)
[2022-12-18 01:58] LABS: TOT PROT 7.3 g/dl (6.4-8.2)
[2022-12-18] MEDS ORDERED: DEXAMETHASONE SOD PHOSPHATE 10 MG/1 ML VIAL ONE (02:15)
[2022-12-18 03:19] LABS: ERYTHROCYTE SEDIMENTATION RATE 60 mm/hr (0-30)
== END 2022-12-18 05:06 | disposition short-term general hospital (02) ==
LOC: JER 21:53
PROC: 3E033NZ Introduction of Analgesics, Hypnotics, Sedatives into Peripheral Vein, Percutaneous Approach (ICD-10-PCS; principal; 2022-12-18)
PROC: 3E033GC Introduction of Other Therapeutic Substance into Peripheral Vein, Percutaneous Approach (ICD-10-PCS; 2022-12-18)
PROC: 3E033GC Introduction of Other Therapeutic Substance into Peripheral Vein, Percutaneous Approach (ICD-10-PCS; 2022-12-18)
DX: R51.9 Headache, unspecified (principal); H57.12 Ocular pain, left eye
CPT/HCPCS: 36415; 70450-TC; 70480-TC; 80053; 85025; 85651; 87635; 99285-25; J1100

== ENCOUNTER 2023-04-22 16:16 | Emergency (ER) | payer OTHER ==
[2023-04-22 16:24] VITALS: BP 107/65; PULSE 89; RESP 16; TEMP 98.1; BMI 27.2
[2023-04-22 17:23] LABS: EPI CELLS 17 /uL (0-25.1); HYALINE CASTS 2 /uL (0-3.1); PH,URINE 5.5 (5.0-8.0); URINE APPEARANCE CLOUDY; URINE BACTERIA 126 /uL (0-1359); URINE BILIRUBIN NEGATIVE (NEGATIVE); URINE COLOR YELLOW; URINE GLUCOSE (UA) NEGATIVE (NEGATIVE); URINE KETONE NEGATIVE (NEGATIVE); URINE LEUK ESTERASE 2+ (NEGATIVE); URINE NITRITE NEGATIVE (NEGATIVE); URINE PROTEIN 1+ (NEGATIVE); URINE UROBILINOGEN 0.2 mg/dL (0.2-1.0); URINE WBC 866 /uL (0-25.8)
[2023-04-22 17:51] LABS: BASO % 0.6 % (0-2.0); EOS % 4.2 % (0-4.5); HEMATOCRIT 37.1 % (32.4-45.2); HEMOGLOBIN 12.4 GM/dL (10.7-15.3); LYMPH % 19.7 % (8-40); MCH 29.5 pg (25.7-33.7); MCHC 33.4 g/dl (32.0-36.0); MEAN CELL VOLUME 88.4 fl (80-96); MEAN PLT VOLUME 8.4 fl (7.5-11.1); MONO % 7.8 % (3.8-10.2); NEUT % 67.7 % (42.8-82.8); PLATELET COUNT 339 10^3/uL (134-434); RDW 13.3 % (11.6-15.6); WHITE BLOOD COUNT 7.9 K/mm3 (4.0-10.0)
[2023-04-22 18:16] LABS: POTASSIUM 3.9 mmol/L (3.5-5.1)
[2023-04-22 18:18] LABS: CALCIUM 9.1 mg/dL (8.5-10.1)
[2023-04-22 18:23] LABS: CREATININE 1.8 mg/dL (0.55-1.3)
[2023-04-22] MEDS ORDERED: SODIUM CHLORIDE 0.9% 500 ML INFUS.BAG IV ONE (18:23)
[2023-04-22] MEDS ORDERED: CEFTRIAXONE 1 GM in DEXTROSE 5%-WATER - 100 ML IVPB ONE (19:05)
[2023-04-22] MEDS ORDERED: ACETAMINOPHEN 1000 MG/100 ML BAG IVPB ONE (19:05)
[2023-04-22] MEDS ORDERED: PHENAZOPYRIDINE HCL 100 MG TABLET (FP) PO ONE (19:07)
[2023-04-22] MEDS ORDERED: ACETAMINOPHEN INJECTION 100 ML IVPB ONE (19:09)
[2023-04-22] MEDS ORDERED: PHENAZOPYRIDINE HCL 100 MG TABLET (FP) ONE (19:09)
[2023-04-22] MEDS ORDERED: CEFTRIAXONE 1 GM/50 ML BAG ONE (19:10)
[2023-04-22] MEDS ORDERED: AZITHROMYCIN 250 MG TABLET PO ONE (21:19)
[2023-04-22] MEDS ORDERED: AZITHROMYCIN 500 MG TABLET ONE (21:32)
== END 2023-04-22 22:27 | disposition home or self-care (01) ==
LOC: JERFT 16:16 → JER 16:16 → JERFT 22:27
PROC: 3E033GC Introduction of Other Therapeutic Substance into Peripheral Vein, Percutaneous Approach (ICD-10-PCS; principal; 2023-04-22)
PROC: 3E033GC Introduction of Other Therapeutic Substance into Peripheral Vein, Percutaneous Approach (ICD-10-PCS; 2023-04-22)
DX: R33.9 Retention of urine, unspecified (principal); N30.01 Acute cystitis with hematuria
CPT/HCPCS: 36415; 74176-TC; 80048; 81003; 85025; 87086; 99284-25

== ENCOUNTER 2023-09-26 08:53 | Inpatient (IN) | payer OTHER ==
[2023-09-26] MEDS ORDERED: ALBUTEROL SO4 2.5/IPRATROPIUM 0.5 INH SOL 3 ML VIAL.NEB. NEB ONE (09:47)
[2023-09-26] MEDS: ALBUTEROL SO4 2.5/IPRATROPIUM 0.5 INH SOL 3 ML VIAL.NEB. NEB ONE (10:01)
[2023-09-26 10:15] LABS: BASO % 0.6 % (0-2.0); EOS % 3.6 % (0-4.5); HEMATOCRIT 34.3 % (32.4-45.2); HEMOGLOBIN 11.7 GM/dL (10.7-15.3); LYMPH % 15.5 % (8-40); MCH 29.2 pg (25.7-33.7); MEAN CELL VOLUME 85.9 fl (80-96); MONO % 6.4 % (3.8-10.2); NEUT % 73.9 % (42.8-82.8); PLATELET COUNT 332 10^3/uL (134-434); RBC 3.99 M/mm3 (3.60-5.2); RDW 15.8 % (11.6-15.6); WHITE BLOOD COUNT 10.3 K/mm3 (4.0-10.0)
[2023-09-26 10:16] LABS: INR 1.12 (0.83-1.09); PROTHROMBIN TIME (PATIENT) 12.6 SEC (9.7-13.0)
[2023-09-26 10:19] LABS: ACTIVATED PTT 30.4 SECONDS (25.2-36.5)
[2023-09-26 10:29] LABS: POTASSIUM 3.7 mmol/L (3.5-5.1)
[2023-09-26 10:32] LABS: ALBUMIN 2.8 g/dl (3.4-5.0); BLOOD UREA NITROGEN 15.6 mg/dL (7-18); CALCIUM 9.4 mg/dL (8.5-10.1)
[2023-09-26 10:34] LABS: CREATININE 0.8 mg/dL (0.55-1.3)
[2023-09-26 10:36] LABS: BILIRUBIN,TOTAL 0.4 mg/dL (0.2-1); TOT PROT 7.4 g/dl (6.4-8.2)
[2023-09-26] MEDS: VANCOMYCIN HCL 1,500 MG in DEXTROSE 5%-WATER - 500 ML IVPB ONE (14:40)
[2023-09-26] MEDS ORDERED: CEFEPIME 2 GM/100 ML BAG IVPB ONE (14:43)
[2023-09-26] MEDS ORDERED: AZITHROMYCIN IVPB 500 MG/250 ML BAG IVPB ONE (14:43)
[2023-09-26] MEDS: CEFEPIME HCL 2 GM VIAL (RESTRICTED TO ID) IVPB ONE (15:06)
[2023-09-26] MEDS: AZITHROMYCIN IVPB 500 MG in DEXTROSE 5%-WATER - 250 ML IVPB ONE (15:14)
[2023-09-26 17:03] VITALS: BMI 20.2
[2023-09-26] MEDS: ALBUTEROL SO4 2.5/IPRATROPIUM 0.5 INH SOL 3 ML VIAL.NEB. NEB SCH (17:20)
[2023-09-26] MEDS: ENOXAPARIN NA (PORCINE) 40 MG/0.4 ML DISP.SYRIN SQ SCH (17:22)
[2023-09-26] MEDS: methylPREDNISolone NA SUCC 40 MG/1 ML VIAL IVPUSH SCH (17:23)
[2023-09-26] MEDS: VANCOMYCIN PREMIX 1.5 GM 1,500 MG/300 ML BAG IVPB ONE (17:25)
[2023-09-26] MEDS: clonazePAM 0.5 MG TABLET PO SCH (21:13)
[2023-09-26] MEDS: TRAZODONE HCL PO SCH (21:13)
[2023-09-26] MEDS: TIMOLOL 0.5% OPHTHALMIC SOL 5 ML BOTTLE OU SCH (21:14)
[2023-09-26] MEDS: BRIMONIDINE TARTRATE 0.2% OPHTHALMIC 5 ML BOTTLE OU SCH (21:14)
[2023-09-26] MEDS: LATANOPROST 0.005% OPHTH SOLN 2.5ML BOTTLE OU SCH (21:14)
[2023-09-26] MEDS ORDERED: traZODone HCL 100 MG TABLET (FP) PO SCH (22:00)
[2023-09-26] MEDS ORDERED: PATIENT'S OWN MEDICATION (NON-FORMULARY) (Brimonidine Tartrate/Timolol [Combigan 0.2%-0.5% OU SCH (22:00)
[2023-09-27] MEDS: ACETAMINOPHEN 325 MG TABLET (FP) PO PRN (04:35)
[2023-09-27] MEDS: guaiFENesin/D-METHORPHAN HB 10 ML UNIT-DOSE CUPS PO ONE (05:23)
[2023-09-27 09:13] LABS: BASO % 0.1 % (0-2.0); HEMATOCRIT 33.5 % (32.4-45.2); HEMOGLOBIN 11.3 GM/dL (10.7-15.3); LYMPH % 14.2 % (8-40); MCH 29.2 pg (25.7-33.7); MCHC 33.7 g/dl (32.0-36.0); MEAN CELL VOLUME 86.5 fl (80-96); MEAN PLT VOLUME 8.5 fl (7.5-11.1); MONO % 0.9 % (3.8-10.2); NEUT % 84.8 % (42.8-82.8); PLATELET COUNT 349 10^3/uL (134-434); RBC 3.87 M/mm3 (3.60-5.2); RDW 15.2 % (11.6-15.6); WHITE BLOOD COUNT 7.6 K/mm3 (4.0-10.0)
[2023-09-27 09:27] LABS: POTASSIUM 3.9 mmol/L (3.5-5.1)
[2023-09-27 09:34] LABS: ALBUMIN 2.7 g/dl (3.4-5.0); CALCIUM 9.6 mg/dL (8.5-10.1)
[2023-09-27 09:35] LABS: BLOOD UREA NITROGEN 15.8 mg/dL (7-18)
[2023-09-27 09:37] LABS: CREATININE 0.8 mg/dL (0.55-1.3)
[2023-09-27 09:39] LABS: BILIRUBIN,TOTAL 0.4 mg/dL (0.2-1)
[2023-09-27 09:42] LABS: TOT PROT 7.3 g/dl (6.4-8.2)
[2023-09-27] MEDS: VENLAFAXINE HCL 75 MG E.R. CAPSULES PO SCH (10:15)
[2023-09-27] MEDS: PANTOPRAZOLE 40 MG TABLET PO SCH (10:16)
[2023-09-27] MEDS: guaiFENesin 200 MG/10 ML 10 ML UNIT-DOSE CUPS PO PRN (10:25)
[2023-09-27] MEDS: AZITHROMYCIN IVPB 500 MG/250 ML BAG IVPB SCH (10:38)
[2023-09-27] MEDS: CEFTRIAXONE 1 GM in DEXTROSE 5%-WATER - 50 ML IVPB SCH (12:21)
[2023-09-28] MEDS: MAGNESIUM HYDROX 2400MG/30ML ORAL SUSPENSION 30 ML CUP PO ONE (07:07)
[2023-09-29] MEDS: MAGNESIUM HYDROX 2400MG/30ML ORAL SUSPENSION 30 ML CUP PO PRN (09:57)
[2023-09-29] MEDS: BISACODYL 5 MG TABLET.DR (FP) PO ONE (16:48)
[2023-09-29] MEDS: POLYETHYLENE GLYCOL (HEALTHYLAX) 3350 17 GM PACKET PO SCH (16:48)
[2023-09-29] MEDS: guaiFENesin/CODEINE 10 ML UNIT-DOSE CUPS PO PRN (20:17)
[2023-09-30 09:54] LABS: HEMATOCRIT 38.5 % (32.4-45.2); HEMOGLOBIN 12.9 GM/dL (10.7-15.3); LYMPH % 9.8 % (8-40); MCH 28.9 pg (25.7-33.7); MCHC 33.5 g/dl (32.0-36.0); MEAN CELL VOLUME 86.5 fl (80-96); MEAN PLT VOLUME 8.8 fl (7.5-11.1); MONO % 2.2 % (3.8-10.2); PLATELET COUNT 375 10^3/uL (134-434); RBC 4.45 M/mm3 (3.60-5.2); RDW 15.5 % (11.6-15.6); WHITE BLOOD COUNT 7.2 K/mm3 (4.0-10.0)
[2023-09-30 10:08] LABS: POTASSIUM 3.7 mmol/L (3.5-5.1)
[2023-09-30 10:17] LABS: ALBUMIN 2.9 g/dl (3.4-5.0); BLOOD UREA NITROGEN 24.4 mg/dL (7-18); CALCIUM 9.2 mg/dL (8.5-10.1)
[2023-09-30 10:20] LABS: CREATININE 0.8 mg/dL (0.55-1.3)
[2023-09-30 10:22] LABS: BILIRUBIN,TOTAL 0.3 mg/dL (0.2-1); TOT PROT 7.4 g/dl (6.4-8.2)
[2023-09-30] MEDS: SODIUM PHOSPHATE/NA BIPHOS 133 ML ENEMA RC ONE (12:17)
[2023-09-30] MEDS: POLYETHYLENE GLYCOL (HEALTHYLAX) 3350 17 GM PACKET PO SCH (22:25)
[2023-09-30] MEDS: SENNOSIDES 8.6MG TABLET (FP) PO PRN (22:28)
[2023-10-01] MEDS: amLODIPine BESYLATE 5 MG TABLET (FP) PO SCH (09:06)
[2023-10-01] MEDS: AZITHROMYCIN 250 MG TABLET PO SCH (10:01)
[2023-10-01] MEDS: MINERAL OIL ENEMA 133 ML ENEMA RC ONE (11:41)
[2023-10-01] MEDS: methylPREDNISolone NA SUCC 40 MG/1 ML VIAL IVPUSH SCH (21:18)
[2023-10-02] MEDS: ALBUTEROL SO4 2.5/IPRATROPIUM 0.5 INH SOL 3 ML VIAL.NEB. NEB SCH
[2023-10-02] MEDS: amLODIPine BESYLATE 5 MG TABLET (FP) PO ONE (06:45)
[2023-10-02 08:30] VITALS: RESP 18
[2023-10-02 09:02] LABS: BASO % 0.1 % (0-2.0); HEMATOCRIT 40.4 % (32.4-45.2); HEMOGLOBIN 13.9 GM/dL (10.7-15.3); LYMPH % 14.7 % (8-40); MCH 29.4 pg (25.7-33.7); MCHC 34.3 g/dl (32.0-36.0); MEAN CELL VOLUME 85.7 fl (80-96); MEAN PLT VOLUME 8.8 fl (7.5-11.1); MONO % 5.4 % (3.8-10.2); NEUT % 79.8 % (42.8-82.8); PLATELET COUNT 392 10^3/uL (134-434); RBC 4.72 M/mm3 (3.60-5.2); RDW 15.5 % (11.6-15.6); WHITE BLOOD COUNT 9.9 K/mm3 (4.0-10.0)
[2023-10-02 09:23] LABS: POTASSIUM 4.3 mmol/L (3.5-5.1)
[2023-10-02 09:34] LABS: CALCIUM 9.5 mg/dL (8.5-10.1)
[2023-10-02 09:35] LABS: BLOOD UREA NITROGEN 21.8 mg/dL (7-18)
[2023-10-02 09:38] LABS: CREATININE 0.8 mg/dL (0.55-1.3)
[2023-10-02] MEDS: BISACODYL 5 MG TABLET.DR (FP) PO ONE (09:53)
[2023-10-03] MEDS: BISACODYL 5 MG TABLET.DR (FP) PO SCH (12:25)
[2023-10-03] MEDS: POLYETHYLENE GLYCOL (HEALTHYLAX) 3350 17 GM PACKET PO SCH (13:30)
[2023-10-03] MEDS: SODIUM PHOSPHATE/NA BIPHOS 133 ML ENEMA RC ONE ×2 (18:14→21:36)
[2023-10-04] MEDS: MAGNESIUM CITRATE 300 ML BOTTLE PO ONE (15:54)
[2023-10-04] MEDS: CEFUROXIME AXETIL 500 MG TABLET PO SCH (22:21)
[2023-10-04] MEDS: ONDANSETRON 4 MG/2 ML VIAL IVPUSH PRN (22:22)
[2023-10-05] MEDS ORDERED: SODIUM PHOSPHATE/NA BIPHOS 133 ML ENEMA RC ONE (08:30)
[2023-10-05 10:01] VITALS: BP 110/69; PULSE 64; TEMP 97.9
== END 2023-10-05 14:09 | disposition home or self-care (01) | DRG 190 ==
LOC: JER 08:53 → JERBED 14:19 → J6S 15:43
PROVIDERS: ADMIT Internal Medicine; ATTEND Internal Medicine
DX: J44.0 Chronic obstructive pulmonary disease with (acute) lower respiratory infection (principal); J18.9 Pneumonia, unspecified organism; J44.1 Chronic obstructive pulmonary disease with (acute) exacerbation; I10 Essential (primary) hypertension; E78.5 Hyperlipidemia, unspecified; J47.9 Bronchiectasis, uncomplicated; M54.12 Radiculopathy, cervical region; K59.00 Constipation, unspecified; Z88.0 Allergy status to penicillin
CPT/HCPCS: 0241U-QW; 36415; 71045-TC-FY; 71275-TC; 74019-TC-FY; 80048; 80053; 83880; 84439; 84443; 84484; 85025; 85610; 85730; 87040; 87635; 87899; 93005; 93010; 94640; 99285-25; Q9967

== ENCOUNTER 2023-10-09 13:27 | Observation (INO) | payer OTHER ==
[2023-10-09 15:21] LABS: BASO % 0.5 % (0-2.0); EOS % 1.5 % (0-4.5); HEMATOCRIT 36.4 % (32.4-45.2); HEMOGLOBIN 12.1 GM/dL (10.7-15.3); LYMPH % 6.2 % (8-40); MCH 28.9 pg (25.7-33.7); MCHC 33.4 g/dl (32.0-36.0); MEAN CELL VOLUME 86.7 fl (80-96); MEAN PLT VOLUME 8.5 fl (7.5-11.1); MONO % 3.1 % (3.8-10.2); NEUT % 88.7 % (42.8-82.8); PLATELET COUNT 313 10^3/uL (134-434); RDW 15.6 % (11.6-15.6)
[2023-10-09 15:28] LABS: INR 1.05 (0.83-1.09); PROTHROMBIN TIME (PATIENT) 11.9 SEC (9.7-13.0)
[2023-10-09 15:31] LABS: ACTIVATED PTT 25.2 SECONDS (25.2-36.5)
[2023-10-09 15:42] LABS: CALCIUM 9.2 mg/dL (8.5-10.1)
[2023-10-09 15:43] LABS: BLOOD UREA NITROGEN 15.4 mg/dL (7-18)
[2023-10-09] MEDS: LACTATED RINGERS SOLUTION 1000 ML INFUS.BAG IV ONE (15:44)
[2023-10-09 15:47] LABS: BILIRUBIN,TOTAL 0.3 mg/dL (0.2-1)
[2023-10-09 15:48] LABS: TOT PROT 6.8 g/dl (6.4-8.2)
[2023-10-09] MEDS ORDERED: CEFEPIME 2 GM/100 ML BAG IVPB ONE (20:52)
[2023-10-09] MEDS: CEFEPIME 2 GM in DEXTROSE 5%-WATER 100 ML IVPB ONE (21:00)
[2023-10-09] MEDS ORDERED: VANCOMYCIN 1 GRAM (PRE-DOCKED) 1,000 MG/250 ML BAG IVPB ONE (21:10)
[2023-10-09] MEDS: VANCOMYCIN 1,000 MG in DEXTROSE 5%-WATER - 250 ML IVPB ONE (21:37)
[2023-10-09] MEDS ORDERED: ACETAMINOPHEN 325 MG TABLET (FP) PO PRN (22:05)
[2023-10-10 00:59] VITALS: BMI 20.7
[2023-10-10] MEDS: clonazePAM 0.5 MG TABLET PO ONE (01:19)
[2023-10-10] MEDS: traZODone HCL 100 MG TABLET (FP) PO ONE (01:33)
[2023-10-10] MEDS ORDERED: CEFEPIME HCL 2 GM VIAL (RESTRICTED TO ID) IVPB ONE (05:50)
[2023-10-10] MEDS: CEFEPIME 2 GM in DEXTROSE 5%-WATER 100 ML IVPB ONE (06:39)
[2023-10-10] MEDS: ALBUTEROL SO4 2.5/IPRATROPIUM 0.5 INH SOL 3 ML VIAL.NEB. NEB SCH (07:50)
[2023-10-10 08:47] LABS: BASO % 0.2 % (0-2.0); HEMATOCRIT 32.4 % (32.4-45.2); HEMOGLOBIN 10.7 GM/dL (10.7-15.3); LYMPH % 14.8 % (8-40); MCH 28.9 pg (25.7-33.7); MCHC 33.1 g/dl (32.0-36.0); MEAN CELL VOLUME 87.1 fl (80-96); MEAN PLT VOLUME 8.9 fl (7.5-11.1); MONO % 5.7 % (3.8-10.2); NEUT % 79.3 % (42.8-82.8); PLATELET COUNT 284 10^3/uL (134-434); RBC 3.71 M/mm3 (3.60-5.2); RDW 15.6 % (11.6-15.6); WHITE BLOOD COUNT 8.5 K/mm3 (4.0-10.0)
[2023-10-10 08:53] LABS: POTASSIUM 3.6 mmol/L (3.5-5.1)
[2023-10-10 08:54] LABS: CALCIUM 8.5 mg/dL (8.5-10.1)
[2023-10-10 08:55] LABS: BLOOD UREA NITROGEN 14.6 mg/dL (7-18)
[2023-10-10 08:58] LABS: CREATININE 0.7 mg/dL (0.55-1.3)
[2023-10-10] MEDS ORDERED: PATIENT'S OWN MEDICATION (NON-FORMULARY) (Brimonidine Tartrate/Timolol [Combigan 0.2%-0.5% OU SCH (10:00)
[2023-10-10] MEDS: TIMOLOL 0.5% OPHTHALMIC SOL 5 ML BOTTLE OU SCH (10:21)
[2023-10-10] MEDS: VANCOMYCIN/WATER FOR INJ (PEG) 750 MG/150 ML BAG IVPB SCH (10:21)
[2023-10-10] MEDS: guaiFENesin/D-METHORPHAN HB 10 ML UNIT-DOSE CUPS PO PRN (10:21)
[2023-10-10] MEDS: BRIMONIDINE TARTRATE 0.2% OPHTHALMIC 5 ML BOTTLE OU SCH (10:23)
[2023-10-10] MEDS: MAGNESIUM CITRATE 300 ML BOTTLE PO PRN (13:23)
[2023-10-10] MEDS: PANTOPRAZOLE 40 MG TABLET PO SCH (13:24)
[2023-10-10] MEDS ORDERED: CEFEPIME HCL 2 GM VIAL (RESTRICTED TO ID) IVPB SCH (14:00)
[2023-10-10] MEDS: CEFEPIME 2 GM in DEXTROSE 5%-WATER 100 ML IVPB SCH (18:42)
[2023-10-10] MEDS: guaiFENesin/CODEINE 10 ML UNIT-DOSE CUPS PO PRN (18:55)
[2023-10-10] MEDS: VENLAFAXINE HCL 75 MG E.R. CAPSULES PO SCH (21:50)
[2023-10-10] MEDS: traZODone HCL 100 MG TABLET (FP) PO SCH (21:51)
[2023-10-11] MEDS: CEFTRIAXONE 1 GM in DEXTROSE 5%-WATER - 50 ML IVPB SCH (12:50)
[2023-10-11] MEDS: methylPREDNISolone NA SUCC 40 MG/1 ML VIAL IVPUSH SCH (12:50)
[2023-10-11] MEDS ORDERED: CEFEPIME 2 GM in DEXTROSE 5%-WATER 100 ML IVPB SCH (18:00)
[2023-10-11] MEDS: PANTOPRAZOLE 40 MG TABLET PO SCH (21:51)
[2023-10-12] MEDS: VANCOMYCIN 750 MG in DEXTROSE 5%-WATER - 150 ML IVPB SCH (10:20)
[2023-10-12] MEDS: SODIUM CHLORIDE 500 ML IV STA (12:23)
[2023-10-12] MEDS: methylPREDNISolone NA SUCC 40 MG/1 ML VIAL IVPUSH SCH (21:13)
[2023-10-12] MEDS: BUDESONIDE/FORMETEROL FUMARATE 160/4.5 mcg INHALER IH SCH (21:15)
[2023-10-13] MEDS ORDERED: ALBUTEROL SO4 0.083% IH SOL 2.5 MG/3 ML VIAL.NEB. NEB PRN (11:01)
[2023-10-13] MEDS: SODIUM CHLORIDE 500 ML IV STA (11:37)
[2023-10-14] MEDS: methylPREDNISolone NA SUCC 40 MG/1 ML VIAL IVPUSH SCH (09:43)
[2023-10-14 12:07] VITALS: BP 133/79; PULSE 98; RESP 22; TEMP 97
== END 2023-10-14 11:50 | disposition home health service (06) ==
LOC: JER 13:27 → JERBED 21:46 → J7W 23:42
PROVIDERS: ADMIT Internal Medicine; ATTEND Internal Medicine
PROC: 3E0F7GC Introduction of Other Therapeutic Substance into Respiratory Tract, Via Natural or Artificial Opening (ICD-10-PCS; principal; 2023-10-09)
PROC: 3E03329 Introduction of Other Anti-infective into Peripheral Vein, Percutaneous Approach (ICD-10-PCS; 2023-10-09)
PROC: 3E0337Z Introduction of Electrolytic and Water Balance Substance into Peripheral Vein, Percutaneous Approach (ICD-10-PCS; 2023-10-09)
PROC: 3E033GC Introduction of Other Therapeutic Substance into Peripheral Vein, Percutaneous Approach (ICD-10-PCS; 2023-10-09)
DX: J44.1 Chronic obstructive pulmonary disease with (acute) exacerbation (principal); J47.9 Bronchiectasis, uncomplicated; F41.8 Other specified anxiety disorders; I27.20 Pulmonary hypertension, unspecified; I48.0 Paroxysmal atrial fibrillation; E78.5 Hyperlipidemia, unspecified; I35.0 Nonrheumatic aortic (valve) stenosis; Z87.440 Personal history of urinary (tract) infections; Z87.891 Personal history of nicotine dependence; Z88.0 Allergy status to penicillin; Z88.8 Allergy status to other drugs, medicaments and biological substances
CPT/HCPCS: 0241U-QW; 36415; 71045-TC-FY; 71275-TC; 80048; 80053; 83735; 84484; 85025; 85610; 85730; 86850; 86900; 86901; 87633; 93005; 93010; 94640; 96361; 96365; 96366; 96367; 96375; 96376; 99285-25; G0378; Q9967

== ENCOUNTER 2024-02-13 14:36 | Inpatient (IN) | payer OTHER ==
[2024-02-13] MEDS: SODIUM CHLORIDE 0.9% 1000 ML INFUS.BAG IV STA (15:56)
[2024-02-13] MEDS ORDERED: VANCOMYCIN 1 GRAM (PRE-DOCKED) 1,000 MG/250 ML BAG IVPB ONE (16:09)
[2024-02-13] MEDS: VANCOMYCIN 1,000 MG in DEXTROSE 5%-WATER - 250 ML IVPB ONE (16:12)
[2024-02-13 16:16] LABS: VENOUS BASE EXCESS 3.4 mmol/L (-2-2); VENOUS O2 SATURATION 29.4 % (70-80); VENOUS PCO2 51.4 mmHg (38-52); VENOUS PH 7.38 (7.310-7.410)
[2024-02-13 16:18] LABS: BASO % 0.4 % (0-2.0); EOS % 0.3 % (0-4.5); HEMATOCRIT 43.3 % (32.4-45.2); HEMOGLOBIN 14.2 GM/dL (10.7-15.3); LYMPH % 9.8 % (8-40); MCH 28.8 pg (25.7-33.7); MCHC 32.7 g/dl (32.0-36.0); MEAN PLT VOLUME 8.9 fl (7.5-11.1); MONO % 4.4 % (3.8-10.2); NEUT % 85.1 % (42.8-82.8); PLATELET COUNT 301 10^3/uL (134-434); RBC 4.92 M/mm3 (3.60-5.2); RDW 14.3 % (11.6-15.6); WHITE BLOOD COUNT 15.8 K/mm3 (4.0-10.0)
[2024-02-13 16:28] LABS: INR 1.18 (0.83-1.09); PROTHROMBIN TIME (PATIENT) 13.5 SEC (9.7-13.0)
[2024-02-13 16:31] LABS: ACTIVATED PTT 29.2 SECONDS (25.2-36.5)
[2024-02-13 16:41] LABS: POTASSIUM 3.2 mmol/L (3.5-5.1)
[2024-02-13 16:43] LABS: ALBUMIN 3.8 g/dl (3.4-5.0); BLOOD UREA NITROGEN 16.1 mg/dL (7-18); CALCIUM 10.4 mg/dL (8.5-10.1)
[2024-02-13 16:46] LABS: CREATININE 1.2 mg/dL (0.55-1.3)
[2024-02-13 16:48] LABS: BILIRUBIN,TOTAL 0.9 mg/dL (0.2-1); TOT PROT 8.4 g/dl (6.4-8.2)
[2024-02-13] MEDS ORDERED: POTASSIUM CHLORIDE ORAL LIQUID 20 MEQ/15 ML ONE (18:01)
[2024-02-13] MEDS ORDERED: ACETAMINOPHEN INJECTION 100 ML ONE (18:01)
[2024-02-13] MEDS ORDERED: CEFEPIME 2 GM/100 ML BAG IVPB ONE (18:02)
[2024-02-13] MEDS: CEFEPIME 2 GM in DEXTROSE 5%-WATER 100 ML IVPB SCH (18:12)
[2024-02-13] MEDS: POTASSIUM CHLORIDE ORAL LIQUID 20 MEQ/15 ML PO ONE (18:12)
[2024-02-13] MEDS: ACETAMINOPHEN 1000 MG/100 ML BAG IVPB ONE (18:12)
[2024-02-13] MEDS ORDERED: ACETAMINOPHEN 325 MG TABLET (FP) PO PRN (20:16)
[2024-02-13] MEDS ORDERED: ALBUTEROL SO4 2.5/IPRATROPIUM 0.5 INH SOL 3 ML VIAL.NEB. NEB PRN (20:37)
[2024-02-13] MEDS: SODIUM CHLORIDE 1,000 ML IV SCH (20:39)
[2024-02-13] MEDS ORDERED: ALBUTEROL SO4 2.5/IPRATROPIUM 0.5 INH SOL 3 ML VIAL.NEB. NEB ONE (21:49)
[2024-02-13] MEDS ORDERED: methylPREDNISolone NA SUCC 40 MG/1 ML VIAL ONE (21:50)
[2024-02-13] MEDS: ALBUTEROL SO4 2.5/IPRATROPIUM 0.5 INH SOL 3 ML VIAL.NEB. NEB SCH (22:11)
[2024-02-13] MEDS: methylPREDNISolone NA SUCC 40 MG/1 ML VIAL IVPUSH SCH (22:11)
[2024-02-13 22:17] LABS: EPI CELLS 18 /uL (0-25.1); HYALINE CASTS 0 /uL (0-3.1); URINE APPEARANCE CLEAR; URINE BILIRUBIN NEGATIVE (NEGATIVE); URINE COLOR DK YELLOW; URINE GLUCOSE (UA) NEGATIVE (NEGATIVE); URINE KETONE NEGATIVE (NEGATIVE); URINE LEUK ESTERASE NEGATIVE (NEGATIVE); URINE NITRITE POSITIVE (NEGATIVE); URINE PROTEIN 1+ (NEGATIVE); URINE RBC 32 /uL (0-23.9); URINE UROBILINOGEN 0.2 mg/dL (0.2-1.0)
[2024-02-14] MEDS ORDERED: ACETAMINOPHEN 1000 MG/100 ML BAG IVPB PRN ×2 (00:30)
[2024-02-14] MEDS ORDERED: methylPREDNISolone NA SUCC 40 MG/1 ML VIAL ONE (01:56)
[2024-02-14] MEDS ORDERED: CEFEPIME HCL 2 GM VIAL (RESTRICTED TO ID) IVPB SCH (02:00)
[2024-02-14 03:58] VITALS: BMI 21.1
[2024-02-14] MEDS: VANCOMYCIN/WATER FOR INJ (PEG) 1,000 MG/200 ML BAG IVPB SCH (04:02)
[2024-02-14] MEDS: CEFEPIME HCL 2 GM VIAL (RESTRICTED TO ID) IVPB SCH ×2 (04:21→12:50)
[2024-02-14] MEDS: PIPERACILLIN/TAZOB 4.5 GM 4.5 GM in DEXTROSE 5%-WATER 100 ML IVPB ONE (04:22)
[2024-02-14] MEDS ORDERED: DICYCLOMINE HCL 10 MG CAPSULE PO PRN (06:08)
[2024-02-14 08:34] LABS: HEMATOCRIT 36.1 % (32.4-45.2); HEMOGLOBIN 11.9 GM/dL (10.7-15.3); MCH 29.2 pg (25.7-33.7); MEAN CELL VOLUME 88.6 fl (80-96); MEAN PLT VOLUME 9.1 fl (7.5-11.1); PLATELET COUNT 216 10^3/uL (134-434); RBC 4.07 M/mm3 (3.60-5.2); RDW 14.7 % (11.6-15.6); WHITE BLOOD COUNT 7.1 K/mm3 (4.0-10.0)
[2024-02-14 08:57] LABS: POTASSIUM 4.5 mmol/L (3.5-5.1)
[2024-02-14 09:08] LABS: CALCIUM 9.2 mg/dL (8.5-10.1)
[2024-02-14 09:09] LABS: BLOOD UREA NITROGEN 15.3 mg/dL (7-18)
[2024-02-14 09:11] LABS: PHOSPHOROUS 1.8 mg/dL (2.5-4.9)
[2024-02-14 09:12] LABS: CREATININE 0.8 mg/dL (0.55-1.3)
[2024-02-14 09:13] LABS: BILIRUBIN,TOTAL 0.8 mg/dL (0.2-1); TOT PROT 6.7 g/dl (6.4-8.2)
[2024-02-14 09:24] LABS: ALBUMIN 2.8 g/dl (3.4-5.0)
[2024-02-14 09:56] LABS: ANISOCYTOSIS 3+; MACROCYTOSIS 0
[2024-02-14] MEDS ORDERED: PATIENT'S OWN MEDICATION (NON-FORMULARY) (Brimonidine Tartrate/Timolol [Combigan 0.2%-0.5% OU SCH (10:00)
[2024-02-14] MEDS: BUDESONIDE/FORMETEROL FUMARATE 160/4.5 mcg INHALER IH SCH (10:52)
[2024-02-14] MEDS: TIMOLOL 0.5% OPHTHALMIC SOL 5 ML BOTTLE OU SCH (10:58)
[2024-02-14] MEDS: BRIMONIDINE TARTRATE 0.2% OPHTHALMIC 5 ML BOTTLE OU SCH (10:58)
[2024-02-14] MEDS: CHOLECALCIFEROL (VIT D3) 400 UNIT (10 MCG) TABLET PO SCH (10:59)
[2024-02-14] MEDS: clonazePAM 0.5 MG TABLET PO SCH (10:59)
[2024-02-14] MEDS: PANTOPRAZOLE 40 MG TABLET PO SCH (10:59)
[2024-02-14] MEDS: guaiFENesin 600 MG TABLET.ER (FP) PO SCH (10:59)
[2024-02-14] MEDS: ENOXAPARIN NA (PORCINE) 40 MG/0.4 ML DISP.SYRIN SQ SCH (11:00)
[2024-02-14] MEDS: VANCOMYCIN 1,000 MG in DEXTROSE 5%-WATER - 250 ML IVPB SCH (12:50)
[2024-02-14] MEDS: POLYETHYLENE GLYCOL (HEALTHYLAX) 3350 17 GM PACKET PO SCH (13:23)
[2024-02-14] MEDS: CEFEPIME 1 GM in DEXTROSE 5%-WATER 100 ML IVPB SCH (16:38)
[2024-02-14] MEDS ORDERED: traZODone HCL 50 MG TABLET (FP) ONE (21:20)
[2024-02-14] MEDS: traZODone HCL 100 MG TABLET (FP) PO SCH (21:25)
[2024-02-14] MEDS: MONTELUKAST NA 10 MG TABLET PO SCH (21:26)
[2024-02-14] MEDS: guaiFENesin/CODEINE 10 ML UNIT-DOSE CUPS PO PRN (21:27)
[2024-02-15] MEDS ORDERED: ACETAMINOPHEN 325 MG TABLET (FP) PO PRN (00:30)
[2024-02-15] MEDS: guaiFENesin/CODEINE 10 ML UNIT-DOSE CUPS PO PRN ×2 (09:11→15:49)
[2024-02-15] MEDS: NAPH,MB-DB/K PH,MBDB POWDER PACKET PO SCH (13:46)
[2024-02-15] MEDS: methylPREDNISolone NA SUCC 40 MG/1 ML VIAL IVPUSH SCH (13:48)
[2024-02-15 14:44] VITALS: RESP 18
[2024-02-15] MEDS ORDERED: traZODone HCL 50 MG TABLET (FP) ONE (21:14)
[2024-02-16 14:24] VITALS: BP 138/73; PULSE 67; TEMP 97.3
== END 2024-02-16 14:27 | disposition home health service (06) | DRG 190 ==
LOC: JER 14:36 → JERBED 16:59 → J4W 02-14 03:43
PROVIDERS: ADMIT Internal Medicine; ATTEND Internal Medicine
DX: J44.1 Chronic obstructive pulmonary disease with (acute) exacerbation (principal); J18.9 Pneumonia, unspecified organism; N39.0 Urinary tract infection, site not specified; I10 Essential (primary) hypertension; F41.8 Other specified anxiety disorders; E78.5 Hyperlipidemia, unspecified; J44.0 Chronic obstructive pulmonary disease with (acute) lower respiratory infection; I48.0 Paroxysmal atrial fibrillation
CPT/HCPCS: 0241U-QW; 36415; 71045-TC-FY; 80053; 81003; 82803; 83605; 83735; 84100; 84484; 85025; 85610; 85730; 86850; 86900; 86901; 87040; 93005; 93010; 94640; 99285-25; J0131

== ENCOUNTER 2024-05-25 21:29 | Emergency (ER) | payer OTHER ==
[2024-05-25 21:52] VITALS: TEMP 98.1; BMI 21.6
[2024-05-25] MEDS: SODIUM CHLORIDE 1,000 ML IV STA (23:13)
[2024-05-25 23:28] LABS: BASO % 0.5 % (0-2.0); EOS % 2.8 % (0-4.5); HEMATOCRIT 34.2 % (32.4-45.2); HEMOGLOBIN 11.5 GM/dL (10.7-15.3); LYMPH % 23.3 % (8-40); MCH 29.9 pg (25.7-33.7); MCHC 33.6 g/dl (32.0-36.0); MEAN PLT VOLUME 9.7 fl (7.5-11.1); MONO % 10.3 % (3.8-10.2); NEUT % 63.1 % (42.8-82.8); PLATELET COUNT 231 10^3/uL (134-434); RBC 3.85 M/mm3 (3.60-5.2); RDW 14.8 % (11.6-15.6); WHITE BLOOD COUNT 7.3 K/mm3 (4.0-10.0)
[2024-05-25 23:50] LABS: POTASSIUM 3.7 mmol/L (3.5-5.1)
[2024-05-25 23:52] LABS: ALBUMIN 3.2 g/dl (3.4-5.0); BLOOD UREA NITROGEN 18.6 mg/dL (7-18); CALCIUM 9.7 mg/dL (8.5-10.1)
[2024-05-25 23:55] LABS: CREATININE 1.2 mg/dL (0.55-1.3)
[2024-05-25 23:57] LABS: BILIRUBIN,TOTAL 0.3 mg/dL (0.2-1); TOT PROT 6.8 g/dl (6.4-8.2)
[2024-05-26 01:46] VITALS: PULSE 90
[2024-05-26 01:50] VITALS: BP 122/70
== END 2024-05-26 02:23 | disposition home or self-care (01) ==
LOC: JER 21:29
DX: R06.02 Shortness of breath (principal); J18.9 Pneumonia, unspecified organism; Z20.822 Contact with and (suspected) exposure to COVID-19
CPT/HCPCS: 0241U-QW; 36415; 71045-TC-FY; 80053; 85025; 93005; 93010; 99285-25

== ENCOUNTER 2024-06-03 07:22 | Inpatient (IN) | payer OTHER ==
[2024-06-03] MEDS ORDERED: ACETAMINOPHEN INJECTION 100 ML ONE (09:07)
[2024-06-03] MEDS: ACETAMINOPHEN 1000 MG/100 ML BAG IVPB ONE (09:32)
[2024-06-03] MEDS: SODIUM CHLORIDE 0.9% 500 ML INFUS.BAG IV ONE (09:32)
[2024-06-03 09:44] LABS: BASO % 0.7 % (0-2.0); EOS % 2.2 % (0-4.5); HEMATOCRIT 38.4 % (32.4-45.2); HEMOGLOBIN 12.7 GM/dL (10.7-15.3); LYMPH % 19.5 % (8-40); MCH 29.6 pg (25.7-33.7); MCHC 33.1 g/dl (32.0-36.0); MEAN CELL VOLUME 89.3 fl (80-96); MEAN PLT VOLUME 9.5 fl (7.5-11.1); MONO % 7.1 % (3.8-10.2); NEUT % 70.5 % (42.8-82.8); PLATELET COUNT 212 10^3/uL (134-434); RDW 14.5 % (11.6-15.6); WHITE BLOOD COUNT 8.6 K/mm3 (4.0-10.0)
[2024-06-03 09:45] LABS: INR 1.04 (0.83-1.09)
[2024-06-03 09:48] LABS: ACTIVATED PTT 28.1 SECONDS (25.2-36.5)
[2024-06-03 09:56] LABS: POTASSIUM 3.4 mmol/L (3.5-5.1)
[2024-06-03 09:58] LABS: CALCIUM 9.8 mg/dL (8.5-10.1)
[2024-06-03 09:59] LABS: ALBUMIN 3.3 g/dl (3.4-5.0); BLOOD UREA NITROGEN 10.9 mg/dL (7-18)
[2024-06-03 10:02] LABS: CREATININE 0.9 mg/dL (0.55-1.3)
[2024-06-03 10:03] LABS: BILIRUBIN,TOTAL 0.8 mg/dL (0.2-1)
[2024-06-03] MEDS ORDERED: PIPERACILLIN/TAZOB 4.5 GM 4.5 GM in DEXTROSE 5%-WATER 100 ML IVPB ONE (13:43)
[2024-06-03] MEDS ORDERED: CEFEPIME HCL/D5W 2 GM/50 ML BAG IVPB ONE (14:35)
[2024-06-03] MEDS ORDERED: METOCLOPRAMIDE HCL INJECTION 10 MG/2 ML VIAL ONE (14:35)
[2024-06-03] MEDS: METOCLOPRAMIDE HCL INJECTION 10 MG/2 ML VIAL IVPB ONE (14:48)
[2024-06-03] MEDS: CEFEPIME HCL 2 GM VIAL (RESTRICTED TO ID) IVPB ONE (14:48)
[2024-06-03] MEDS ORDERED: VANCOMYCIN 1 GM PREMIX (F) 1 GM/200 ML BAG ONE (15:36)
[2024-06-03] MEDS: VANCOMYCIN 1,000 MG in DEXTROSE 5%-WATER - 250 ML IVPB ONE (15:43)
[2024-06-03] MEDS ORDERED: AZITHROMYCIN IVPB 500 MG/250 ML BAG IVPB ONE (17:24)
[2024-06-03] MEDS ORDERED: ACETAMINOPHEN 325 MG TABLET (FP) ONE (17:24)
[2024-06-03] MEDS: ACETAMINOPHEN 325 MG TABLET (FP) PO PRN (17:36)
[2024-06-03] MEDS: AZITHROMYCIN IVPB 500 MG in DEXTROSE 5%-WATER - 250 ML IVPB ONE (17:41)
[2024-06-03] MEDS ORDERED: methylPREDNISolone NA SUCC 40 MG/1 ML VIAL ONE (18:22)
[2024-06-03] MEDS: methylPREDNISolone NA SUCC 40 MG/1 ML VIAL IVPUSH SCH (18:25)
[2024-06-03] MEDS ORDERED: ALBUTEROL SO4 2.5/IPRATROPIUM 0.5 INH SOL 3 ML VIAL.NEB. NEB ONE (19:51)
[2024-06-03] MEDS: ALBUTEROL SO4 2.5/IPRATROPIUM 0.5 INH SOL 3 ML VIAL.NEB. NEB SCH (19:55)
[2024-06-03] MEDS ORDERED: PATIENT'S OWN MEDICATION (NON-FORMULARY) (Brimonidine Tartrate/Timolol [Combigan 0.2%-0.5% OU SCH (22:00)
[2024-06-03] MEDS ORDERED: traZODone HCL 100 MG TABLET (FP) ONE (22:00)
[2024-06-03] MEDS ORDERED: PANTOPRAZOLE 40 MG TABLET PO ONE (22:00)
[2024-06-03] MEDS ORDERED: VENLAFAXINE HCL ER 150 MG, VENLAFAXINE HCL ER 75 MG PO SCH (22:00)
[2024-06-03] MEDS ORDERED: clonazePAM 0.5 MG TABLET ONE (22:00)
[2024-06-03] MEDS ORDERED: traZODone HCL 50 MG TABLET (FP) ONE (22:00)
[2024-06-03] MEDS ORDERED: VENLAFAXINE HCL 100 MG TABLET PO SCH (22:00)
[2024-06-03] MEDS ORDERED: HEPARIN NA (PORCINE) 5,000 UNITS/ML 1ML VIAL ONE (22:00)
[2024-06-03] MEDS ORDERED: traZODone HCL 100 MG TABLET (FP) PO SCH (22:00)
[2024-06-03] MEDS: BRIMONIDINE TARTRATE 0.2% OPHTHALMIC 5 ML BOTTLE OU SCH (22:45)
[2024-06-03] MEDS: guaiFENesin 600 MG TABLET.ER (FP) PO SCH (22:46)
[2024-06-03] MEDS: VENLAFAXINE HCL 75 MG E.R. CAPSULES PO SCH (22:46)
[2024-06-03] MEDS: BUDESONIDE/FORMETEROL FUMARATE 160/4.5 mcg INHALER IH SCH (22:46)
[2024-06-03] MEDS: clonazePAM 0.5 MG TABLET PO SCH (22:46)
[2024-06-03] MEDS: TIMOLOL 0.5% OPHTHALMIC SOL 5 ML BOTTLE OU SCH (22:46)
[2024-06-03] MEDS: HEPARIN NA (PORCINE) 5,000 UNITS/ML 1ML VIAL SQ SCH (22:46)
[2024-06-03] MEDS: LATANOPROST 0.005% OPHTH SOLN 2.5ML BOTTLE OU SCH (22:46)
[2024-06-03] MEDS: PANTOPRAZOLE 40 MG TABLET PO SCH (22:46)
[2024-06-03] MEDS: TRAZODONE HCL PO SCH (22:46)
[2024-06-03] MEDS ORDERED: CEFEPIME HCL/D5W 1 GM/50 ML BAG IVPB ONE (23:36)
[2024-06-03] MEDS: CEFEPIME HCL/D5W 1 GM/50 ML BAG IVPB SCH (23:43)
[2024-06-04] MEDS ORDERED: methylPREDNISolone NA SUCC 40 MG/1 ML VIAL ONE ×2 (01:49→08:29)
[2024-06-04] MEDS ORDERED: ACETAMINOPHEN 325 MG TABLET (FP) ONE ×2 (02:53→10:19)
[2024-06-04 08:15] LABS: BASO % 0.2 % (0-2.0); HEMATOCRIT 38.1 % (32.4-45.2); LYMPH % 16.4 % (8-40); MCH 30.4 pg (25.7-33.7); MCHC 34.1 g/dl (32.0-36.0); MEAN CELL VOLUME 89.3 fl (80-96); MEAN PLT VOLUME 9.4 fl (7.5-11.1); MONO % 0.8 % (3.8-10.2); NEUT % 82.6 % (42.8-82.8); PLATELET COUNT 229 10^3/uL (134-434); RBC 4.26 M/mm3 (3.60-5.2); RDW 14.6 % (11.6-15.6); WHITE BLOOD COUNT 3.6 K/mm3 (4.0-10.0)
[2024-06-04 08:26] LABS: POTASSIUM 3.9 mmol/L (3.5-5.1)
[2024-06-04] MEDS ORDERED: ALBUTEROL SO4 2.5/IPRATROPIUM 0.5 INH SOL 3 ML VIAL.NEB. NEB ONE ×2 (08:28→12:56)
[2024-06-04] MEDS ORDERED: PANTOPRAZOLE 40 MG TABLET PO ONE (08:29)
[2024-06-04] MEDS ORDERED: CEFEPIME HCL/D5W 1 GM/50 ML BAG IVPB ONE (08:29)
[2024-06-04 08:34] LABS: CALCIUM 9.7 mg/dL (8.5-10.1)
[2024-06-04 08:35] LABS: ALBUMIN 3.2 g/dl (3.4-5.0)
[2024-06-04 08:39] LABS: BILIRUBIN,TOTAL 0.5 mg/dL (0.2-1)
[2024-06-04] MEDS ORDERED: clonazePAM 0.5 MG TABLET ONE (10:00)
[2024-06-04] MEDS ORDERED: HEPARIN NA (PORCINE) 5,000 UNITS/ML 1ML VIAL ONE (10:19)
[2024-06-04] MEDS: CEFEPIME HCL/D5W 1 GM/50 ML BAG IVPB SCH ×2 (10:45→18:40)
[2024-06-04] MEDS ORDERED: AZITHROMYCIN IVPB 500 MG/250 ML BAG IVPB ONE (10:56)
[2024-06-04] MEDS: AZITHROMYCIN IVPB 500 MG/250 ML BAG IVPB SCH (11:05)
[2024-06-04] MEDS: IBUPROFEN 400 MG TABLET (FP) PO PRN (18:58)
[2024-06-04] MEDS: CEFEPIME HCL 1 GM VIAL (RESTRICTED TO ID) IVPB SCH (20:45)
[2024-06-05] MEDS: BISACODYL 5 MG TABLET.DR (FP) PO ONE (22:52)
[2024-06-05] MEDS: amLODIPine BESYLATE 5 MG TABLET (FP) PO SCH (22:52)
[2024-06-05 23:14] VITALS: BMI 19.7
[2024-06-06] MEDS: BISACODYL 5 MG TABLET.DR (FP) PO ONE (03:48)
[2024-06-06 11:57] VITALS: RESP 18
[2024-06-06] MEDS: ACETAMINOPHEN/CAFFEINE/BUTALBITAL 1 TAB PO PRN (13:48)
[2024-06-07 08:31] LABS: BASO % 0.1 % (0-2.0); HEMATOCRIT 37.8 % (32.4-45.2); HEMOGLOBIN 12.8 GM/dL (10.7-15.3); LYMPH % 12.6 % (8-40); MCH 30.2 pg (25.7-33.7); MCHC 33.9 g/dl (32.0-36.0); MEAN CELL VOLUME 88.9 fl (80-96); MEAN PLT VOLUME 8.9 fl (7.5-11.1); MONO % 7.8 % (3.8-10.2); NEUT % 79.5 % (42.8-82.8); PLATELET COUNT 203 10^3/uL (134-434); RBC 4.26 M/mm3 (3.60-5.2); RDW 14.7 % (11.6-15.6); WHITE BLOOD COUNT 6.9 K/mm3 (4.0-10.0)
[2024-06-07 08:58] LABS: POTASSIUM 3.3 mmol/L (3.5-5.1)
[2024-06-07 09:03] LABS: ALBUMIN 3.2 g/dl (3.4-5.0); BLOOD UREA NITROGEN 23.7 mg/dL (7-18); CALCIUM 9.2 mg/dL (8.5-10.1)
[2024-06-07 09:07] LABS: BILIRUBIN,TOTAL 0.4 mg/dL (0.2-1); TOT PROT 6.6 g/dl (6.4-8.2)
[2024-06-07] MEDS ORDERED: AZITHROMYCIN IVPB 500 MG/250 ML BAG IVPB SCH (10:27)
[2024-06-07] MEDS: AZITHROMYCIN IVPB 500 MG/250 ML BAG IVPB SCH (10:36)
[2024-06-07] MEDS: methylPREDNISolone NA SUCC 40 MG/1 ML VIAL IVPUSH SCH (22:34)
[2024-06-08] MEDS: POLYETHYLENE GLYCOL (HEALTHYLAX) 3350 17 GM PACKET PO SCH (18:47)
[2024-06-08] MEDS: DOCUSATE SODIUM 100 MG CAPSULE (FP) PO SCH (18:47)
[2024-06-09 13:12] VITALS: TEMP 97.9
[2024-06-09 14:02] VITALS: BP 119/60; PULSE 78
== END 2024-06-09 16:05 | disposition home or self-care (01) | DRG 194 ==
LOC: JER 07:22 → JERBED 14:00 → J6W 06-04 13:50 → J4W 06-06 18:48 → J6W 06-06 19:40
PROVIDERS: ADMIT Internal Medicine; ATTEND Internal Medicine
DX: J18.9 Pneumonia, unspecified organism (principal); J44.1 Chronic obstructive pulmonary disease with (acute) exacerbation; I27.20 Pulmonary hypertension, unspecified; F41.8 Other specified anxiety disorders; I05.0 Rheumatic mitral stenosis; I48.91 Unspecified atrial fibrillation; E78.5 Hyperlipidemia, unspecified; R06.02 Shortness of breath; R42 Dizziness and giddiness
CPT/HCPCS: 0241U-QW; 36415; 71045-TC-FY; 71275-TC; 80053; 84484; 85025; 85610; 85730; 86850; 86900; 86901; 87040; 87899; 93005; 93010; 94640; 94761; 97116-GP; 97161-GP; 99285-25; J0131; J1644